=== PATIENT | female | born 1955 | race Caucasian/White ===

== ENCOUNTER 2020-06-26 20:22 | Emergency (ER) | payer MEDICARE, OTHER, SELFPAY ==
[2020-06-26 20:39] VITALS: BP 176/83; PULSE 92; RESP 18; TEMP 36.5; O2SAT 98; BMI 25.1
--- NOTE | 2020-06-26 21:10 | XRR_ITS ---
PROCEDURE INFORMATION: Exam: XR Left Knee Exam date and time: 06/26/2020 9:14 PM Age: 65 years old Clinical indication: Pain; Knee; Left; Additional info: Fall TECHNIQUE: Imaging protocol: XR Left knee. Views: 3 views. Total images: 3 COMPARISON: No relevant prior studies available. FINDINGS: Bones/joints: No visible acute osseous abnormality, fracture, subluxation, or dislocation. No radiographically visible joint effusion. Osteopenia. Soft tissues: Soft tissues without evidence of edema, swelling, contusion, emphysema, or radiopaque foreign body. XR/XR knee LT 3V* [id number] IMPRESSION: Nonacute.
--- NOTE | 2020-06-26 21:10 | XRR_ITS ---
PROCEDURE INFORMATION: Exam: XR Left Hip Exam date and time: 06/26/2020 9:14 PM Age: 65 years old Clinical indication: Hip pain; Left hip; Additional info: Fall TECHNIQUE: Imaging protocol: XR Left hip. Views: 2 or 3 views hip with pelvis when performed. Total images: 2 COMPARISON: No relevant prior studies available. FINDINGS: Bones/joints: Osteopenia. No acute fracture. Soft tissues: Unremarkable. XR/XR hip LT 2-3V wo/w pel* [id number] IMPRESSION: No acute findings.
--- NOTE | 2020-06-26 21:49 | W.ED.FALL ---
HPI - Fall General: Chief Complaint: Fall Stated Complaint: Fall Time Seen by Provider: 06/26/20 21:07 Source: patient and family (daughter) Mode of arrival: ambulatory Limitations: no limitations History of Present Illness: HPI Narrative: 65-year-old female who tripped over a piece of wood and fell on a concrete floor 2 days ago. She had pain in her left knee and left hip. She has been able to ambulate but with pain since then. Her family wanted her checked out so they brought her into the emergency department for evaluation. She complains of left hip and left knee pain. She did not hit her head and did not have any loss of consciousness. MD complaint: fall Onset (ago): day(s) (2) Fall from: standing Fall witnessed: yes, by family Place fall occurred: home Loss of consciousness: None Prolonged down time: no Symptoms prior to fall: none Context: tripped/slipped Location of injury - extremities: Left: knee Severity: moderate Quality: sharp Associated symptoms-after fall: Denies abdominal pain, chest pain, confusion, difficulty walking, headache(s), hematuria, lightheadedness, neck pain, numbness, short of breath, vertigo or weakness Review of Systems General: Reports: 10 or more systems reviewed and unremarkable except in HPI and below Const: Denies: fever(s), chills or body aches Eyes: Denies: change in vision or blurry vision ENMT: Denies: throat pain, enlarged tonsils, odynophagia, hoarseness, mouth pain or swelling of lips/tongue Card: Denies: chest pain or lightheadedness Resp: Denies: dyspnea, productive cough or non-productive cough GI: Denies: abdominal pain : Denies: hematuria Musc: Denies: neck pain Skin/Breast: Denies: rash, pruritus or erythema Neuro: Denies: headache(s), difficulty walking, vertigo or confusion Endo: Denies: polyuria, polydipsia or tired all the time Physical Exam Const: COMMON NORMALS: no acute distress, average body habitus, patient oriented x3, no limitations, healthy appearing, alert and well nourished HENMT: COMMON NORMALS: normocephalic, atraumatic and moist oral mucous membranes HEAD & SCALP: normocephalic and atraumatic Neck/C-Spine: COMMON NORMALS: full ROM, supple, no meningeal signs, no JVD and No carotid bruits Resp: COMMON NORMALS: normal respiratory effort, No retractions, No use of accessory muscles, clear to auscultation bilaterally and percussion normal AUSCULTATION: clear to auscultation bilaterally PERCUSSION: percussion normal Cardio: COMMON NORMALS: no JVD, regular rate, regular rhythm, S1 normal heart sound present, S2 normal heart sound present, No gallops present (Cardio), No clicks present (Cardio), No murmurs present (Cardio), No rub (Cardio) and Peripheral pulses 2+ throughout RATE: regular rate RHYTHM: regular rhythm HEART SOUNDS: S1 normal heart sound present and S2 normal heart sound present PERIPHERAL PULSES: Peripheral pulses 2+ throughout GI: COMMON NORMALS: Normal to inspection, nondistended, normoactive bowel sounds present, Soft to palpation, non-tender, No hepatosplenomegaly present, no masses and no bruits PALPATION: Yes Soft to palpation and Yes No hepatosplenomegaly present Extremity: COMMON NORMALS: normal to inspection, full ROM, capillary refill normal, no calf tenderness and no pedal edema LEFT LOWER EXTREMITY: Yes hip joint Left hip: Yes inspection (normal), Yes palpation (mild tender to palpation), Yes ROM (full ROM) and Yes neurovascular exam (intact) and Yes knee joint Left knee: Yes inspection (no obvious deformity), Yes palpation (tender to palpation on the medial side, along the joint line.), Yes ROM (full ROM) and Yes neurovascular exam (intact) Neuro: COMMON NORMALS: patient oriented x3 SENSORIUM/ORIENTATION: Yes alert MENINGEAL SIGNS: Yes no meningeal signs Skin: COMMON NORMALS: no rashes or lesions noted, no wounds, turgor normal, no jaundice, no petechiae and no mottling GENERAL SKIN EXAM: no rashes or lesions noted and turgor normal Course Reevaluation(s): Reevaluation #1: Discussed her imaging findings with her. Negative for acute fracture or dislocation. We will discharge her home on conservative measures-acetaminophen or ibuprofen as needed. She voiced understanding and is in agreement with the plan. Time: 21:49 Vital Signs: Vital signs: Vital Signs Temperature 97.7 F 06/26/20 20:39 Pulse Rate 85 06/26/20 21:57 Respiratory Rate 18 06/26/20 21:57 Blood Pressure 134/86 06/26/20 21:57 Pulse Oximetry 97 06/26/20 21:57 MDM - Fall MDM Narrative: Medical decision making narrative: 65-year-old female patient who had a fall 2 days ago and had knee and hip pain. X-rays done today were negative for acute findings and she is discharged home on conservative measures. Medical Records: Attestation: I reviewed the patient's medical records. Imaging Data^: Xray Ortho: Attestation: I personally reviewed and interpreted this imaging study as follows: Radiologist's impression: XRay Report Signed Patient: Jose J Meier #: [id number] : 1955cct#:[id number] Age/Sex: 65 / FADM Date: 06/26/20 Loc: ERRoom/Bed: Attending Dr: Ordering Provider/Ordering MD: Nayely Nicole MD, [facility] Date of Service: 06/26/20 Procedure(s): XR hip LT 2-3V wo/w pel* [id number] Accession Number(s): [id number] Report Number: [id number] PROCEDURE INFORMATION: Exam: XR Left Hip Exam date and time: 06/26/2020 9:14 PM Age: 65 years old Clinical indication: Hip pain; Left hip; Additional info: Fall TECHNIQUE: Imaging protocol: XR Left hip. Views: 2 or 3 views hip with pelvis when performed. Total images: 2 COMPARISON: No relevant prior studies available. FINDINGS: Bones/joints: Osteopenia. No acute fracture. Soft tissues: Unremarkable. XR/XR hip LT 2-3V wo/w pel* [id number] IMPRESSION: No acute findings. Dictated By:Bhavin Ellsworth Signed By:Ana Luisa Ellsworth Date/Time:06/26/202141 DD/ [address] [address] XRay Report Signed Patient: Jose J Meier #: [id number] : 1955cct#:[id number] Age/Sex: 65 / FADM Date: 06/26/20 Loc: ERRoom/Bed: Attending Dr: Ordering Provider/Ordering MD: Nayely Nicole MD, [facility] Date of Service: 06/26/20 Procedure(s): XR knee LT 3V* [id number] Accession Number(s): [id number] Report Number: [id number] PROCEDURE INFORMATION: Exam: XR Left Knee Exam date and time: 06/26/2020 9:14 PM Age: 65 years old Clinical indication: Pain; Knee; Left; Additional info: Fall TECHNIQUE: Imaging protocol: XR Left knee. Views: 3 views. Total images: 3 COMPARISON: No relevant prior studies available. FINDINGS: Bones/joints: No visible acute osseous abnormality, fracture, subluxation, or dislocation. No radiographically visible joint effusion. Osteopenia. Soft tissues: Soft tissues without evidence of edema, swelling, contusion, emphysema, or radiopaque foreign body. XR/XR knee LT 3V* [id number] IMPRESSION: Nonacute. Dictated By:Bhavin Ellsworth Signed By:Bhavin EllsworthSiyogesh Date/Time:06/26/202141 DD/ 39 Discharge Plan Discharge Patient Disposition: Home Clinical Impression: Acute pain of left hip Fall Qualifiers: Encounter type: initial encounter Qualified Code(s): W19.XXXA - Unspecified fall, initial encounter Left knee pain Qualifiers: Chronicity: acute Qualified Code(s): M25.562 - Pain in left knee Condition: Stable Discharge Orders: Discharge ED (Routine); Ordered 06/26/20 Ordered By: Nayely Nicole Discharge Diet: Usual diet Discharge Activity: Increase activity as tolerated Patient Instructions: Knee Pain (ED), Arthralgia (ED), Fall Prevention (ED) Activity Restrictions/Additional Instructions: Return for any new or worsening symptoms. Follow-up with your primary care provider within 3 days. Take Tylenol or ibuprofen as needed for pain. If your knee pain continues for about 2 weeks and does not get significantly better you need to follow-up with your primary care provider as you may need an MRI of the knee to look for ligament damage. Coding Level of Care Code ED Railroad Construction Director for [place] [facility]
[2020-06-26 21:57] VITALS: BP 134/86; PULSE 85; RESP 18; O2SAT 97
== END 2020-06-26 21:58 | disposition home or self-care (01) ==
PROVIDERS: Emergency Provider Family Medicine
DX: M25.562 Pain in left knee (principal); M25.552 Pain in left hip; W18.09XA Striking against other object with subsequent fall, initial encounter
CPT/HCPCS: 73502; 73562; 99282

== ENCOUNTER 2021-11-10 17:59 | Emergency (ER) | payer MEDICARE, OTHER, SELFPAY ==
[2021-11-10 18:04] VITALS: PULSE 87; RESP 18; TEMP 36.6; O2SAT 98; BMI 29.5
--- NOTE | 2021-11-10 18:39 | ECG_ITS ---
[facility] Test Date: 2021-11-10 Pat Name: Areli Meier Department: Room: Gender: Female Sheriff Officer: : 1955 Requested By: Tierney Jones Order Number: [id number] Gilberto MD: Ilya Bob M.D. Measurements Intervals [place] Rate: 75 P: 87 [place]: 178 QRS: 16 QRSD: 93 T: 61 QT: 397 QTc: 445 Interpretive Statements SINUS RHYTHM WITH OCCASIONAL VENTRICULAR PREMATURE COMPLEXES LOW QRS VOLTAGE IN PRECORDIAL LEADS [QRS DEFLECTION < 1.0 mV IN CHEST LEADS] No previous ECG available for comparison Electronically Signed On 11-11-2021 14:22:11 CDT by Ilya Bob M.D. [email or web address]
--- NOTE | 2021-11-10 18:39 | CTR_ITS ---
PROCEDURE INFORMATION: Exam: CT Head Without Contrast Exam date and time: 11/10/2021 7:14 PM Age: 66 years old Clinical indication: Weakness, extremity; Bilateral; Additional info: Symptoms of acute stroke TECHNIQUE: Imaging protocol: Computed tomography of the head without contrast. Radiation optimization: All CT scans at this facility use at least one of these dose optimization techniques: automated exposure control; mA and/or kV adjustment per patient size (includes targeted exams where dose is matched to clinical indication); or iterative reconstruction. COMPARISON: No relevant prior studies available. RADIATION DOSE METRICS: Total DLP (mGy-cm): 1100.18 FINDINGS: Brain: Mild diffuse white matter disease likely reflecting chronic microvascular ischemic changes. Cerebral ventricles: No ventriculomegaly. Paranasal sinuses: Visualized sinuses are unremarkable. No fluid levels. Mastoid air cells: Visualized mastoid air cells are well aerated. Bones/joints: Unremarkable. No acute fracture. Soft tissues: Unremarkable. CT/CT head wo con* [id number] IMPRESSION: Negative for intracranial hemorrhage or mass effect
--- NOTE | 2021-11-10 19:45 | CTR_ITS ---
PROCEDURE INFORMATION: Exam: CTA Head With Contrast, Venography Exam date and time: 11/10/2021 8:20 PM Age: 66 years old Clinical indication: Speech disturbance and weakness; Additional info: ELLIS TECHNIQUE: Imaging protocol: Computed tomography angiography of the head with contrast. Exam focused on the veins. 3D rendering (Not supervised by radiologist): MIP and/or 3D reconstructed images were created by the technologist. Radiation optimization: All CT scans at this facility use at least one of these dose optimization techniques: automated exposure control; mA and/or kV adjustment per patient size (includes targeted exams where dose is matched to clinical indication); or iterative reconstruction. Contrast material: OMNIPAQUE 350; Contrast volume: 95 ml; Contrast route: INTRAVENOUS (IV); COMPARISON: CT head wo con* [id number] 11/10/2021 7:14 PM RADIATION DOSE METRICS: Total DLP (mGy-cm): 478.02 FINDINGS: Superior sagittal sinus: Patent. Straight sinus: Patent. Transverse sinuses: Patent. Sigmoid sinuses: Patent. Internal jugular veins: Limited visualized internal jugular veins are patent. ANTERIOR CIRCULATION: Right internal carotid artery: Moderate stenosis of the right internal carotid artery with calcified plaque. Left internal carotid artery: Moderate stenosis of the left internal carotid artery with calcified plaque. Brain: No definite mass, mass effect, or midline shift. Cerebral ventricles: No ventriculomegaly. Soft tissues: Unremarkable. PROCEDURE INFORMATION: Exam: CTA Neck With Contrast Exam date and time: 11/10/2021 8:20 PM Age: 66 years old Clinical indication: Speech disturbance and weakness; Additional info: ELLIS TECHNIQUE: Imaging protocol: Computed tomographic angiography of the neck with contrast. 3D rendering (Not supervised by radiologist): MIP and/or 3D reconstructed images were created by the technologist. Radiation optimization: All CT scans at this facility use at least one of these dose optimization techniques: automated exposure control; mA and/or kV adjustment per patient size (includes targeted exams where dose is matched to clinical indication); or iterative reconstruction. Contrast material: OMNIPAQUE 350; Contrast volume: 95 ml; Contrast route: INTRAVENOUS (IV); COMPARISON: CT head wo con* [id number] 11/10/2021 7:14 PM RADIATION DOSE METRICS: Total DLP (mGy-cm): 478.02 FINDINGS: Right common carotid artery: No stenosis. No dissection or occlusion. Right internal carotid artery: There is approximately 60% stenosis of the right internal carotid artery by calcified plaque. Right external carotid artery: No occlusion or stenosis of the origin. Left common carotid artery: No stenosis. No dissection or occlusion. Left internal carotid artery: There is approximately 71% stenosis of the left internal carotid artery with calcified/noncalcified plaque. Left external carotid artery: No occlusion or stenosis of the origin. Right vertebral artery: No stenosis. No dissection or occlusion. Left vertebral artery: No stenosis. No dissection or occlusion. Soft tissues: Normal. No significant soft tissue swelling. Bones/joints: No acute fracture. Lungs: Emphysematous changes in the visualized lung bases. CT/CT angio headneck* [id number] IMPRESSION: No significant stenosis or occlusion of the intracranial arteries. IMPRESSION: 1. Right: Approximately 60% stenosis of the right internal carotid artery by calcified plaque. Vertebral artery is patent. 2. Left: Approximately 71% stenosis of the left internal carotid artery with calcified/noncalcified plaque. Vertebral artery is patent. REFERENCES: NASCET CRITERIA. The degree of internal carotid artery stenosis is based on NASCET criteria. Normal is no stenosis. Mild is less than 50% stenosis. Moderate is 50-69% stenosis. Severe is 70% to 99% stenosis. Total occlusion is no detectable patent lumen.
--- NOTE | 2021-11-10 19:47 | ED_ITS ---
HPI - Neuro Symptoms/Deficit General: Chief Complaint: Neuro Symptoms/Deficit Stated Complaint: Slurring words/wobbly Time Seen by Provider: 11/10/21 19:42 Source: patient Mode of arrival: ambulatory Limitations: no limitations History of Present Illness: 66-year-old female states that over the last 2 d ays she has been having a migraine headache she rates a 6 out of 10. States been having some intermittent episodes of some dizziness with difficulty walking with bilateral hand weakness and some slurred speech. She states she does have a history of anxiety attacks well and she had a traumatic experience on Monday she states she had found to 25-year-old at home himself she is been having some anxiety since then. States her symptoms currently are completely resolved except for a headache she rates a 5 out of 10 denies any chest pain denies any fever. Associated symptoms: Reports headache(s); Deny chest pain, nausea or vomiting Review of Systems Const: Denies: fever(s), chills, body aches or change in appetite Eyes: Denies: blurry vision or eye discomfort ENMT: Denies: throat pain or dental pain Card: Denies: chest pain Resp: Denies: dyspnea GI: Denies: abdominal pain, nausea, vomiting or diarrhea : Denies: dysuria Musc: Denies: neck pain or back pain Skin/Breast: Denies: rash Neuro: Reports: headache(s), numbness in extremities and weakness in extremities Psych: Denies: depression [place]/Lymph: Denies: easy bruising All/Imm: Denies: urticaria PFSH ED PFSH: Medical History (Updated 11/10/21 @ 21:28 by Tierney Jones MD) Migraine Social History (Updated 11/10/21 @ 19:48 by Tierney Jones MD) Substance/Drug Use: never NIH stroke score NIHSS: Level Of Consciousness - 1a: 0 Level Of Consciousness Questions - 1b: Both Correct Level Of Consciousness Commands - 1c: Both Correct Best Gaze - 2: Normal Visual [place] - 3: No Visual Loss Facial Palsy - 4: Normal Motor Arm Right - 5: No Drift Motor Arm Left - 5: No Drift Motor Leg Right - 6: No Drift Motor Leg Left - 6: No Drift Limb Ataxia - 7: Absent Sensory - 8: Normal Best Language - 9: No Aphasia Dysarthia - 10: Normal Extinction And Inattention - 11: 0 Score: Total Score: 0 Physical Exam Const: COMMON NORMALS: no acute distress, patient oriented x3 and healthy appearing HENMT: COMMON NORMALS: normocephalic and atraumatic HEAD & SCALP: normocephalic and atraumatic Eye: COMMON NORMALS: Equal, round and reactive pupils present and EOMs intact bilaterally PUPIL: Yes Equal, round and reactive pupils present Neck/C-Spine: COMMON NORMALS: full ROM and supple Chest: COMMONS NORMALS: normal inspection of the chest and normal palpation of entire chest wall Resp: COMMON NORMALS: normal respiratory effort, No retractions, No use of accessory muscles and clear to auscultation bilaterally AUSCULTATION: clear to auscultation bilaterally Cardio: COMMON NORMALS: regular rate, regular rhythm and No murmurs present (Cardio) RATE: regular rate RHYTHM: regular rhythm GI: COMMON NORMALS: Normal to inspection, nondistended, normoactive bowel sounds present, Soft to palpation, non-tender and no masses PALPATION: Yes Soft to palpation Extremity: COMMON NORMALS: normal to inspection and full ROM Neuro: COMMON NORMALS: patient oriented x3, moves all extremities and no focal motor deficits Psych: COMMON NORMALS: mental status grossly normal, Normal thought process present and cooperative THOUGHT PROCESS: Normal thought process present Skin: COMMON NORMALS: no rashes or lesions noted and no wounds GENERAL SKIN EXAM: no rashes or lesions noted Course Vital Signs: Vital signs: Vital Signs Temperature 97.9 F 11/10/21 18:04 Pulse Rate 101 H 11/10/21 20:00 Respiratory Rate 19 H 11/10/21 20:00 Blood Pressure 137/71 11/10/21 20:00 Pulse Oximetry 95 11/10/21 20:00 Oxygen Delivery Me thod 11/10/21 20:00 MDM - Neuro Symptoms/Deficit Medical Decision Making Patient presents here with headaches along with TIAs. Patient's symptom-free here feels much improved after Reglan and Benadryl did overview her CT angio with her she does have some stenosis no signs of acute stroke we will start her on a statin normal aspirin did give her smoking cessation counseling we will get her follow-up with neurology and she is to return if worsening. Lab Data : 11/10/21 19:58 11/10/21 19:[address] 11/10/21 18:39 IMPRESSION: Negative for intracranial hemorrhage or mass effect Head/Neck CTA 11/10/21 19:45 IMPRESSION: No significant stenosis or occlusion of the intracranial arteries. IMPRESSION: 1. Right: Approximately 60% stenosis of the right internal carotid artery by calcified plaque. Vertebral artery is patent. 2. Left: Approximately 71% stenosis of the left internal carotid artery with calcified/noncalcified plaque. Vertebral artery is patent. REFERENCES: NASCET CRITERIA. The degree of internal carotid artery stenosis is based on NASCET criteria. Normal is no stenosis. Mild is less than 50% stenosis. Moderate is 50-69% stenosis. Severe is 70% to 99% stenosis. Total occlusion is no detectable patent lumen. Laboratory Results WBC 10.9 10^3/uL (4.0-10.0) H 11/10/21 19:58 RBC 5.76 10^6/uL (4.1-5.3) H 11/10/21 19:58 Hgb 16.7 g/dL (11.5-15.3) H 11/10/21 19:58 Hct 51.4 % (37.0-47.0) H 11/10/21 19:58 MCV 89.2 fl (81-99) 11/10/21 19:58 MCH 29.0 pg (28.0-34.0) 11/10/21 19:58 MCHC 32.5 g/dL (30.0-36.0) 11/10/21 19:58 RDW 13.9 % (12.1-15.1) 11/10/21 19:58 Plt Count 245 10^3/cmm (130-400) 11/10/21 19:58 MPV 11.1 fL (7.4-10.4) H 11/10/21 19:58 Neut % (Auto) 60.3 % 11/10/21 19:58 Lymph % (Auto) 26.3 % 11/10/21 19:58 [place] % (Auto) 9.6 % 11/10/21 19:58 Eos % (Auto) 2.8 % 11/10/21 19:58 Baso % (Auto) 0.5 % 11/10/21 19:58 Neut # (Auto) 6.56 10^3/uL (1.8-7.7) 11/10/21 19:58 Lymph # (Auto) 2.9 10^3/uL (0.8-4.8) 11/10/21 19:58 [place] # (Auto) 1.0 10^3/uL (0.2-0.9) H 11/10/21 19:58 Eos # (Auto) 0.3 10^3/uL (0.0-0.8) 11/10/21 19:58 Baso # (Auto) 0.1 10^3/uL (0.0-0.1) 11/10/21 19:58 Nucleated RBC % (auto) 0 % 11/10/21 19:58 Nucleated RBCs # 0.0 /100WBC 11/10/21 19:58 PT 13.00 SECONDS (12.1-14.9) 11/10/21 19:58 INR 0.95 (0.8-1.2) 11/10/21 19:58 APTT 27.2 SECONDS (23.9-36.7) 11/10/21 19:58 Sodium 139 mmol/L (136-145) 11/10/21 19:58 Potassium 4.1 mmol/L (3.5-5.1) 11/10/21 19:58 Chloride 101 mmol/L (98-107) 11/10/21 19:58 Carbon Dioxide 28 mmol/L (22-29) 11/10/21 19:58 Anion Gap 14.1 (5-19) 11/10/21 19:58 BUN 17 mg/dL (8-23) 11/10/21 19:58 Creatinine 1.0 mg/dL (0.5-0.9) H 11/10/21 19:58 GFR Calculation 55.8 mL/min (90-130) L 11/10/21 19:58 Glucose 95 mg/dL (65-115) 11/10/21 19:58 Calculated Osmolality 289 mOsm/kg (285-295) 11/10/21 19:58 Calcium 9.5 mg/dL (8.5-10.5) 11/10/21 19:58 Total Bilirubin 0.2 mg/dL (0.15-1.2) 11/10/21 19:58 AST 16 U/L (0-32) 11/10/21 19:58 ALT 13 U/L (0-33) 11/10/21 19:58 Alkaline Phosphatase 125 IU/L (35-105) H 11/10/21 19:58 Total Protein 7.4 g/dL (6.6-8.7) 11/10/21 19:58 Albumin 4.3 g/dL (3.5-5.2) 11/10/21 19:58 Globulin 3.1 g/dL (1.3-4.6) 11/10/21 19:58 EKG Data EKG 1: I personally reviewed and interpreted this EKG as follows: EKG interpretation date: 11/10/21 EKG interpretation time: 20:52 Interpretation: nsr hr [address] or t wave abnormalities qrs 93 qtc 426 Discharge Plan Discharge Patient Disposition: Home Clinical Impression: Transient cerebral ischemia, Headache Prescriptions: New aspirin 81 mg capsule 81 mg PO DAILY Qty: 30 0RF atorvastatin 80 mg tablet 80 mg PO DAILY Qty: 60 0RF Discharge Orders: Discharge ED (Routine); Ordered 11/10/21 Ordered By: Tierney Jones Discharge Diet: Advance as tolerated Discharge Activity: Resume usual activity Patient Instructions: Transient Ischemic Attack (ED) Coding Level of Care Code ED Electrostatic Powder Coating Technician for [facility] [facility] Exam Comprehensive
[2021-11-10 19:50] VITALS: BP 186/94; PULSE 84; RESP 20; O2SAT 96
--- NOTE | 2021-11-10 19:50 | PC.NURSE ---
pt to ed from home with for eval of mild confusion, altered gait, slurred speech since yesterday associated with migraine and extreme stress. states that yesterday she found her family friend had [place] no hx of similar events. no hx of traumas. denies s/s occurring at this time. nad.
[2021-11-10 20:00] VITALS: BP 137/71; PULSE 101; RESP 19; O2SAT 95
[2021-11-10 20:06] LABS: Basophils # 0.1 10^3/uL (0.0-0.1); Basophils % 0.5 %; Eosinophils # 0.3 10^3/uL (0.0-0.8); Eosinophils % 2.8 %; Hematocrit 51.4 % (37.0-47.0); Hemoglobin 16.7 g/dL (11.5-15.3); Lymphocytes # 2.9 10^3/uL (0.8-4.8); Lymphocytes % 26.3 %; Mean Corpuscular HGB Conc 32.5 g/dL (30.0-36.0); Mean Corpuscular Volume 89.2 fl (81-99); Mean Platelet Volume 11.1 fL (7.4-10.4); Monocytes % 9.6 %; Neutrophils # 6.56 10^3/uL (1.8-7.7); Neutrophils % 60.3 %; Nucleated Red Blood Cells % 0 %; Platelet Count 245 10^3/cmm (130-400); Red Blood Count 5.76 10^6/uL (4.1-5.3); Red Cell Distribution Width 13.9 % (12.1-15.1); White Blood Count 10.9 10^3/uL (4.0-10.0)
[2021-11-10 20:13] LABS: INR 0.95 (0.8-1.2)
[2021-11-10 20:14] LABS: Partial Thromboplastin Time 27.2 SECONDS (23.9-36.7)
[2021-11-10] MEDS: metoclopramide 5 mg/mL SDV 2 mL IVP (20:15)
[2021-11-10] MEDS: diphenhydrAMINE 50 mg/mL SDV 1mL 25 MG IVP (20:15)
--- NOTE | 2021-11-10 20:20 | PC.NURSE ---
PT TO CT AT THIS TIME WITH RADIATOR MECHANIC
[2021-11-10 20:25] LABS: Alanine Aminotransferase 13 U/L (0-33); Albumin Level 4.3 g/dL (3.5-5.2); Alkaline Phosphatase 125 IU/L (35-105); Anion Gap 14.1 (5-19); Aspartate Amino Transferase 16 U/L (0-32); Blood Urea Nitrogen 17 mg/dL (8-23); Calcium 9.5 mg/dL (8.5-10.5); Carbon Dioxide 28 mmol/L (22-29); Chloride 101 mmol/L (98-107); Globulin 3.1 g/dL (1.3-4.6); Glomerular Filtration Rate 55.8 mL/min (90-130); Glucose 95 mg/dL (65-115); Osmolality Calculated 289 mOsm/kg (285-295); Potassium 4.1 mmol/L (3.5-5.1); Sodium 139 mmol/L (136-145); Total Bilirubin 0.2 mg/dL (0.15-1.2); Total Protein 7.4 g/dL (6.6-8.7)
[2021-11-10] MEDS: iohexol 350 mg/mL 100 mL Btl IV (20:25)
[2021-11-10 21:57] VITALS: BP 121/68; PULSE 72; RESP 16; O2SAT 92
--- NOTE | 2021-11-12 11:36 | DCPLANNER ---
Addendum entered by Shannan Dawson 12/22/21 09:01: law office manager received the following message from the neurology clinic regarding follow up appointment: Patient cancelled appt. Per Patient, She does not think she needs to see Dr Haque. Addendum entered by Shannan Dawson 11/19/21 14:38: Patient has a follow up appointment scheduled for Monday, December 08, [address] at 10:[address] Haque. Clinic will call patient with appointment information. Original Note: law office manager had message to schedule a follow up appointment for patient with neurology. law office manager sent patients information to the front office staff at neurology. Patients information will be printed and reviewed. Clinic will call patient with appointment information.
== END 2021-11-10 21:55 | disposition home or self-care (01) ==
PROVIDERS: Emergency Provider Emergency Medicine
DX: R51.9 Headache, unspecified (principal); G45.9 Transient cerebral ischemic attack, unspecified
CPT/HCPCS: 70450; 70496; 70498; 80053; 85025; 85610; 85730; 93005; 96374; 96375; 99285; J1200; J2765; Q9967

== ENCOUNTER → 2021-11-30 14:23 | Outpatient (BNVA) | payer MEDICARE, OTHER, SELFPAY | PROVIDERS: Visit Provider Family Medicine | DX: I10 Essential (primary) hypertension (principal); I65.22 Occlusion and stenosis of left carotid artery | CPT/HCPCS: 80061 ==

== ENCOUNTER → 2022-01-20 13:03 | Outpatient (BNVA) | payer MEDICARE, OTHER, SELFPAY | PROVIDERS: PCP Family Medicine; Visit Provider Thoracic Surgery (Cardiothoracic Vascular Surgery) | DX: I65.22 Occlusion and stenosis of left carotid artery (principal) | CPT/HCPCS: 99203; 99204 ==

== ENCOUNTER 2022-01-21 13:00 | Outpatient (CLI) | payer MEDICARE, OTHER, SELFPAY ==
--- NOTE | 2022-01-21 | USCV_ITS ---
Areli Meier Age: 66 Gender: F : 1955 Exam Date: 01/21/2022 13:15 Ordering Phys: Markos Marie MD (Andy[email or web address] [place] Technologist: MARY Exam Location: [facility] [place] Indication: CAROTID US OF LEFT SIDE ONLY TO EVAL FOR FLOW IN ICA PER SX Risk Factors: Previous Vascular Surgery: Right Brachial BP: / Left Brachial BP: / Right Left Velocity (cm/s) Spectral Plaque Velocity (cm/s) Spectral Plaque Syst/Diast Broadening Syst/Diast Broadening / Mid CCA 47.30 / 7.90 / Prox ICA 580.70/ 278.90 / Mid ICA 303.30/ 72.90 / Distal ICA 61.50 / 17.90 ECA 114.10 ICA/CCA 12.27 Vertebral Antegrade / cm/s 68.40/ 23.10 cm/s Subclavian Tri 172.2 0 FINDINGS Limited exam to Left ICA. High grade stenosis Left ICA with diffuse, circumfrential wall thickening. Small caliber artery. Marked systolic and diastolic stenosis. CONCLUSIONS Near complete occlusion left ICA. Severe stenosis. Dr. Marie is notified. Dr. Monica Campos DO (Electronically Signed) Final Date: 21 January 2022 15:57 S
== END 2022-01-21 13:01 | disposition home or self-care (01) ==
PROVIDERS: Visit Provider Thoracic Surgery (Cardiothoracic Vascular Surgery)
DX: I65.22 Occlusion and stenosis of left carotid artery (principal)
CPT/HCPCS: 93880

== ENCOUNTER 2022-01-24 05:42 | Inpatient (IN) | payer MEDICARE, OTHER, SELFPAY ==
[2022-01-21 13:15] LABS: Basophils # 0.1 10^3/uL (0.0-0.1); Eosinophils # 0.3 10^3/uL (0.0-0.8); Eosinophils % 2.8 %; Hematocrit 53.2 % (37.0-47.0); Hemoglobin 17.2 g/dL (11.5-15.3); Lymphocytes % 21.4 %; Mean Corpuscular HGB Conc 32.3 g/dL (30.0-36.0); Mean Corpuscular Hemoglobin 28.7 pg (28.0-34.0); Mean Corpuscular Volume 88.8 fl (81-99); Mean Platelet Volume 11.4 fL (7.4-10.4); Monocytes # 0.7 10^3/uL (0.2-0.9); Neutrophils # 6.29 10^3/uL (1.8-7.7); Neutrophils % 67.5 %; Nucleated Red Blood Cells % 0 %; Platelet Count 265 10^3/cmm (130-400); Red Blood Count 5.99 10^6/uL (4.1-5.3); Red Cell Distribution Width 14.4 % (12.1-15.1); White Blood Count 9.3 10^3/uL (4.0-10.0)
--- NOTE | 2022-01-21 13:22 | ANES.PREANE2 ---
Pre-Anesthetic Assessment Height/Weight: Height 1.75 m Weight 79.379 kg Operation Date: 01/24/22 07:00 Proposed Procedures p Carotid Endarterectomy(Not Applicable) - Markos Marie MD Familial anesthetic complications: None Social No alcohol and No tobacco Exam alert, oriented x 3, clear to auscultation bilaterally and regular rate & rhythm Airway Mallampati: Class II Dentition: chipped and loose Pulmonary None reported CV/HEM Hypertension None reported Hepatic None reported GI Gastroesophageal Reflux Disease Musc/skel Lower Back Pain Neuropsych Transient Ischemic Attack Anesthetic Plan ASA status: 3 Anesthesia: General Risk of > 500 ml blood loss (7ml/kg in children): Yes, adequate IV access and fluids planned Medications/Allergies Home Medications Medication Instructions Recorded Confirmed Last Taken Type aspirin 81 mg capsule 81 mg PO DAILY #30 caps 11/10/21 01/21/22 01/21/22 Rx amlodipine 5 mg tablet 5 mg PO DAILY #30 tabs 12/21/21 01/21/22 Unknown Rx atorvastatin 80 mg tablet 80 mg PO DAILY #30 tabs 12/21/21 01/21/22 Unknown Rx lisinopril 20 mg tablet 20 mg PO DAILY #30 tabs 12/21/21 01/21/22 Unknown Rx pantoprazole 40 mg tablet,delayed 40 mg PO DAILY #30 tabs 12/21/21 01/21/22 Unknown Rx release Allergies Allergy/AdvReac Type Severity Reaction Status Date / Time NSAIDS (Non-Steroidal Allergy Mild ADR-Chest Verified 01/20/22 13:43 Anti-Inflamma Pain Penicillins Allergy Mild rash Verified 01/20/22 13:43 tetracycline Allergy ALGY-Bliste Verified 01/21/22 12:41 r [facility] Anesthesia Medical History Migraine Family History Mother CAD (coronary artery disease) Diabetes Hypertension Father CAD (coronary artery disease) Hypertension Sister Cancer Breast Cancer Denies family history of Clotting disorder Dementia Hyperlipidemia Psychiatric illness Chronic kidney disease (CKD) Suicide Anesthesia complication Bleeding disorder Family history of premature coronary artery disease Lung disease Stroke Social History Smoking and tobacco status: smoker, details unknown cigarettes Packs smoked per day: 0.5 Years cigarettes smoked: 50 [ Other cigarette details: quit 1 month ago] Alcohol intake: never Lives independently: Yes Household members: none Marital status: / Number of children: 4 Pets and animals: Yes Pets & animals: cat(s) and dog(s) Female Reproductive History Spontaneous abortions: No Data Anesthesia : 01/21/22 12:54 01/21/22 12:54 Short CBC 01/21/22 Range/Units 12:54 WBC 9.3 (4.0-10.0) 10^3/uL Hgb 17.2 H (11.5-15.3) g/dL Hct 53.2 H (37.0-47.0) % MCV 88.8 (81-99) fl Plt Count 265 (130-400) 10^3/cmm Neut % (Auto) 67.5 % Neut # (Auto) 6.29 (1.8-7.7) 10^3/uL Cardiac Studies: No Data to Display
[2022-01-21 13:37] LABS: Add Urine Microscopic? YES; Bilirubin Urine Neg (Negative); Blood Urine 3+ (Negative); Glucose Urine UA Norm (Normal); Ketones Urine Negative (Negative); Leukocyte Esterase Urine Negative (Negative); Nitrate Urine Negative (Negative); Protein Urine Neg (Negative); Specific Gravity, Urine 1.015 (1.005-1.030); Sulfosalicylic Acid Urine Negative (Negative); Urine Appearance Clear (CLEAR); Urine Color Yellow (Yellow); Urobilinogen Urine Norm (Negative); pH Urine 6 (5-7)
[2022-01-21 13:42] LABS: Add Urine Culture? No; Bacteria Urine TRACE /hpf; RBC Urine 0-4 /hpf (0-2); Squamous Epithelial Cell Urine 0-4 /hpf (0-5)
[2022-01-21 13:44] LABS: Anion Gap 19.3 (5-19); Blood Urea Nitrogen 13 mg/dL (8-23); Calcium 10.4 mg/dL (8.5-10.5); Carbon Dioxide 28 mmol/L (22-29); Chloride 97 mmol/L (98-107); Glomerular Filtration Rate 72.2 mL/min (90-130); Glucose 176 mg/dL (65-115); Osmolality Calculated 294 mOsm/kg (285-295); Potassium 4.3 mmol/L (3.5-5.1); Sodium 140 mmol/L (136-145)
[2022-01-24] VITALS (51 sets, daily range): BP systolic 96–124; BP diastolic 47–62; PULSE 48–102; RESP 12–29; TEMP 36.8; O2SAT 84–96
--- NOTE | 2022-01-24 05:42 | XRR_ITS ---
PROCEDURE INFORMATION: Exam: XR Chest Exam date and time: 01/24/2022 6:21 AM Age: 66 years old Clinical indication: Screening exam; Pre-operative exam; Cardiovascular screening; Additional info: Carotid endarterectomy TECHNIQUE: Imaging protocol: Radiologic exam of the chest. Views: 1 view. COMPARISON: CT angio headneck* [id number] 11/10/2021 8:20 PM FINDINGS: Lungs: There is a background of emphysema and pulmonary fibrosis. Pleural spaces: Unremarkable. No pleural effusion. No pneumothorax. Heart/Mediastinum: Unremarkable. No cardiomegaly. Bones/joints: Unremarkable. XR/XR chest 1V portable [id number] IMPRESSION: 1. There are no acute chest findings. 2. Background of emphysema and pulmonary fibrosis.
[2022-01-24] MEDS: sodium chloride 0.9% 1,000 ML 30 ML IV (06:05)
[2022-01-24] MEDS: vancomycin 1,500 MG/300 ML PIGGYBACK 200 MG IV (07:07)
--- NOTE | 2022-01-24 07:15 | W.PM.OPSUD ---
Surgery/Procedure H&P Update DATE OF PROCEDURE: January 24, 2022 DATE H&P PERFORMED: 01/20/22 H&P UPDATE INFORMATION: I have reviewed H&P completed within last 30 days, I have examined patient prior to procedure and No changes to prior documentation PREOP DIAGNOSIS: left carotid endarterectomy PRIMARY INDICATION FOR PROCEDURE: High grade Right ICA stenosis with TIA's PLANNED PROCEDURE: Operation Date: 01/24/22 07:00 Proposed Procedures p Carotid Endarterectomy 67507,I65.29(Not Applicable) - Markos Marie MD
[2022-01-24] MEDS: vancomycin 1,000 MG SDV 1000 MG IRRIGATION (07:50)
[2022-01-24] MEDS: heparin, porcine 1,000 unit/mL INJ 10 mL 10000 UNIT IRRIGATION (07:50)
--- NOTE | 2022-01-24 10:16 | P.OP_ITS ---
Operative Report Date of procedure: January 24, 2022 Pre-op diagnosis: Preop Diagnosis left carotid endarterectomy Post-op diagnosis: same Procedure done: Left carotid endarterectomy with patch angioplasty Implants: Shalom shield patch Specimens removed/disposition: Left carotid plaque Surgeon: Markos Marie Estimated blood loss (mL): 50 Complications: None: Neurologically intact postop Findings: Friable carotid plaque with thrombus burden Condition: stable Disposition: ICU Brief History: Ms. Meier is a 66-year-old female referred to our service for multiple TIAs over the last month consisting of left amaurosis along with right upper extremity and lower extremity weakness which lasts from a few minutes to several minutes. Prior CTA described a 71% left ICA stenosis at the bifurcation. Upon personal review, I was concerned that this was over greater degree of stenosis and at my request, was reviewed by Dr. Jimenes from our radiology service. He also felt that the lesion was tight. Carotid duplex was performed and revealed velocities over 500 ms in the left ICA. Given her multiple TIAs, I recommended expeditious endarterectomy. Rationale was carefully discussed including details risk of the procedure. Appropriate consents were reviewed and signed. Procedure: Ms. Meier was placed on the OR table and underwent general endotracheal anesthesia with a neurological monitoring endotracheal tube as well as placement of a right radial arterial line. Bihemispheric monitoring pads were placed as well as grounding and sensing pads for nerve conduction evaluation during neck dissection.The entire upper chest and left neck were sterilely prepped and draped. Incision was made along the anterior border of the sternomastoid muscle and carried down to the platysma with cautery. Dissection from this point forward was carried out utilizing Metzenbaum scissors and limited use of bipolar cautery. The internal jugular vein was dissected free and the facial vein was ligated, oversewn, and divided. Dissection was continued down through the ansa cervicalis with preservation of major branches. Minor branches were divided if required to allow for adequate exposure. Nerve conduction evaluation was performed throughout the dissection for protection of the recurrent nerve. We subsequently reached the common carotid artery. Dissection was then continued proximally to distally across the bifurcation. Vessel loops were placed around the common carotid artery, internal carotid artery, and external carotid artery. Distally, the base of the hypoglossal nerve could be identified and was protected. The internal carotid artery disease went fairly high and extended above the level of the mandibular angle. This did require some traction in this region, but great care was taken to minimize pressure to the hypoglossal nerve, which was protected. Care was taken during this disse ction to avoid injury to the vagus nerve. The patient was then heparinized with 10,000 units. The systolic blood pressure was elevated to 160. Following this, in a rapid sequenced fashion, the distal internal carotid artery was clamped followed by clamping of the common carotid artery and external carotid artery. #11 scalpel blade was used to open the common carotid artery proximally. Gee scissors were then utilized to extend this arteriotomy across the distal common carotid artery and ulcerated very stenotic plaque and continue this further at the bifurcation across the calcific plaque in the internal carotid artery until we had reached normal intima. The internal carotid artery clamp was briefly flashed with evidence of brisk back bleeding, therefore we elected not to shunt. It should be noted that bi-hemispheric oximetry was recorded throughout the procedure. Next, a freer elevator was utilized to create a dissection plane the plaque from intima at the proximal portion of the arteriotomy. This was then divided with a #11 scalpel blade. This plaque was then further dissected along the intimal plane proximally to distally across the bifurcation. Utilizing an everting technique, plaque was removed from the external carotid artery with brisk flow. This plaque was then dissected free up the internal carotid artery to a feathered edge. Heparinized saline solution was utilized to remove any loose debris. Next, a Hemashield patch was brought into the field and sewn into position utilizing a running 6-0 Prolene suture, thereby completing our patch angioplasty. At the completion of the patch, the external carotid artery was opened followed by the common carotid artery and finally the internal carotid artery, thereby reestablishing cerebral flow. Areas of extravasation were repaired with 6-0 Prolene suture. After 5 minutes, heparin was reversed with protamine. Hemostasis was confirmed. The wound was irrigated with antibiotic solution. A small, flat, Flakito-Larsen drain was placed in the wound and connected to bulb suction. Sponge and needle count was correct. The wound was then closed in 2 layers of 3-0 Vicryl suture. Skin was reapproximated in a subcuticular manner with 4-0 Monocryl suture. A pressure dressing was then applied. The patient was awakened from anesthesia and spontaneous movement of all extremities as well as movement to command was noted. The patient was then transferred to the ICU in stable condition. I did teacher counselor with the family at completion of the procedure. Ms. Meier will be monitored in the ICU for the next 24 hours.
--- NOTE | 2022-01-24 10:30 | PC.NURSE ---
To unit Pt brought to unit by OR staff via bed. Pt is sleepy yet arousable. Pt has right radial art line that has been zeroed and is reading accurately. Pt has surgical incision to left anterior neck with island dressing that is CDI. NILSA drain to left neck has scant amounts of red drainage. Mckenzie is in place and draining. Pt's family updated and at bedside.
[2022-01-24] MEDS: aspirin 81 mg Chew Tablet PO (14:22)
--- NOTE | 2022-01-24 15:01 | ANE.PACU2 ---
Inpatient post-anesthesia follow up: Airway intact: Yes Vital signs: Temperature Pulse Rate Respiratory Rate Blood Pressure Pulse Oximetry Oxygen Delivery Me thod Nasal Cannula Oxygen Flow Rate Fraction of Inspir ed Oxygen Hydration adequate: Yes Nausea and vomiting: No Pain level: 1 Mental status: Baseline
[2022-01-24] MEDS: vancomycin 1,000 MG in sodium chloride 0.9% 250 ML 250 MG IV (19:43)
--- NOTE | 2022-01-24 20:30 | PC.NURSE ---
Turcios Catheter Removed turcios catheter per orders. 9mls of water removed from balloon and catheter tip intact. Patient tolerated well.
--- NOTE | 2022-01-25 04:55 | PM.DCS ---
Discharge Providers Date of Admission: 01/24/22 05:42 Date of Discharge: January 25, 2022 Attending Provider at Admission: Markos Marie MD Attending Provider at Discharge: Markos Marie MD Primary Care Provider: Chicho Agrawal DO Hospital Course Hospital Course Ms. Meier is a 66-year-old female with a high-grade left carotid artery stenosis and a 1 month history of recurrent TIAs which actually resulted in an ER visit. Subsequent CTA revealed a 71% left ICA stenosis though by visual inspection, this appeared to be a more critical stenosis. In date, post CTA carotid duplex revealed velocities over 500 ms in the left ICA at the bifurcation. Because of her recurrent symptoms of right-sided intermittent weakness along with left amaurosis, we recommended expeditious endarterectomy. She was electively admitted yesterday on January 24 and underwent left carotid endarterectomy with patch angioplasty. Post procedure she had convalesced in the ICU where she remained neurologically intact. She has had low NILSA drain output. She is tolerating a regular diet without difficulties. No phonation problems. NILSA drain and operative dressing was removed this morning. Incision line is clean, dry, and intact. New dressing was applied. She remains neurologically intact. She is in good spirits and eager for discharge. She will be discharged to home today in stable condition. She will be scheduled follow-up in my clinic in 1 week. Physical Exam Const: COMMON NORMALS: patient oriented x3 Neck/C-Spine: OTHER: Left neck incision is clean and dry. There is no swelling, drainage, or erythema. Resp: COMMON NORMALS: normal respiratory effort and clear to auscultation bilaterally AUSCULTATION: clear to auscultation bilaterally Cardio: COMMON NORMALS: regular rate, regular rhythm, S1 normal heart sound present and No rub (Cardio) RATE: regular rate RHYTHM: regular rhythm HEART SOUNDS: S1 normal heart sound present Extremity: COMMON NORMALS: no clubbing, cyanosis or edema Neuro: COMMON NORMALS: patient oriented x3, no focal motor deficits, no sensory deficits noted and gait normal OTHER: Tongue is midline with protrusion. Face is symmetrical. Voice quality is normal. No swallowing difficulties. Urinary Catheter Management: Mckenzie: Cath Placed During This Visit: yes Reason for Continuing Indwelling Catheter: Not indwelling catheter Urinary Catheter Date of Insertion: 01/24/22 Urinary Catheter Time of Insertion: 07:20 Discharge Data Studies Completed and Pending Completed Studies During Hospitalization Category Date Time Status XR chest 1V portable [id number] Routine Exams 01/24/22 05:42 Completed Pending at discharge Category Date Time Status Leukocyte Reduced RBC Routine Lab 01/21/22 12:54 Results Type and Screen - Cardiac Routine Lab 01/21/22 12:54 Results Pathology: Surgical [PTH] Routine Pth 01/24/22 09:38 Received Radiology Impressions Chest X-Ray 01/24/22 05:42 IMPRESSION: 1. There are no acute chest findings. 2. Background of emphysema and pulmonary fibrosis. Laboratory Results WBC 9.3 10^3/uL (4.0-10.0) 01/21/22 12:54 RBC 5.99 10^6/uL (4.1-5.3) H 01/21/22 12:54 Hgb 17.2 g/dL (11.5-15.3) H 01/21/22 12:54 Hct 53.2 % (37.0-47.0) H 01/21/22 12:54 MCV 88.8 fl (81-99) 01/21/22 12:54 MCH 28.7 pg (28.0-34.0) 01/21/22 12:54 MCHC 32.3 g/dL (30.0-36.0) 01/21/22 12:54 RDW 14.4 % (12.1-15.1) 01/21/22 12:54 Plt Count 265 10^3/cmm (130-400) 01/21/22 12:54 MPV 11.4 fL (7.4-10.4) H 01/21/22 12:54 Neut % (Auto) 67.5 % 01/21/22 12:54 Lymph % (Auto) 21.4 % 01/21/22 12:54 [place] % (Auto) 7.0 % 01/21/22 12:54 Eos % (Auto) 2.8 % 01/21/22 12:54 Baso % (Auto) 1.0 % 01/21/22 12:54 Neut # (Auto) 6.29 10^3/uL (1.8-7.7) 01/21/22 12:54 Lymph # (Auto) 2.0 10^3/uL (0.8-4.8) 01/21/22 12:54 [place] # (Auto) 0.7 10^3/uL (0.2-0.9) 01/21/22 12:54 Eos # (Auto) 0.3 10^3/uL (0.0-0.8) 01/21/22 12:54 Baso # (Auto) 0.1 10^3/uL (0.0-0.1) 01/21/22 12:54 Nucleated RBC % (auto) 0 % 01/21/22 12:54 Nucleated RBCs # 0.0 /100WBC 01/21/22 12:54 Sodium 140 mmol/L (136-145) 01/21/22 12:54 Potassium 4.3 mmol/L (3.5-5.1) 01/21/22 12:54 Chloride 97 mmol/L (98-107) L 01/21/22 12:54 Carbon Dioxide 28 mmol/L (22-29) 01/21/22 12:54 Anion Gap 19.3 (5-19) H 01/21/22 12:54 BUN 13 mg/dL (8-23) 01/21/22 12:54 Creatinine 0.8 mg/dL (0.5-0.9) 01/21/22 12:54 GFR Calculation 72.2 mL/min (90-130) L 01/21/22 12:54 Glucose 176 mg/dL (65-115) H 01/21/22 12:54 Calculated Osmolality 294 mOsm/kg (285-295) 01/21/22 12:54 Calcium 10.4 mg/dL (8.5-10.5) 01/21/22 12:54 Urine Color Yellow (Yellow) 01/21/22 12:54 Urine Appearance Clear (CLEAR) 01/21/22 12:54 Urine pH 6 (5-7) 01/21/22 12:54 Ur Specific Victor 1.015 (1.005-1.030) 01/21/22 12:54 Urine Protein Neg (Negative) 01/21/22 12:54 Urine Glucose (UA) Norm (Normal) 01/21/22 12:54 Urine Ketones Negative (Negative) 01/21/22 12:54 Urine Blood 3+ (Negative) H 01/21/22 12:54 Urine Nitrate Negative (Negative) 01/21/22 12:54 Urine Bilirubin Neg (Negative) 01/21/22 12:54 Prot Sulfosalicylic Acd Negative (Negative) 01/21/22 12:54 Urine Urobilinogen Norm mg/dL (Negative) 01/21/22 12:54 Ur Leukocyte Esterase Negative (Negative) 01/21/22 12:54 Urine RBC 0-4 /hpf (0-2) H 01/21/22 12:54 Urine WBC None /hpf (0-5) 01/21/22 12:54 Ur Squamous Epith Cells 0-4 /hpf (0-5) H 01/21/22 12:54 Amorphous Sediment Not Reportable 01/21/22 12:54 Urine Bacteria Trace /hpf (NONE) 01/21/22 12:54 Blood Type O Positive 01/21/22 12:54 Rho(D) Type Positive 01/21/22 12:54 Antibody Screen Negative 01/21/22 12:54 Crossmatch See Detail 01/21/22 12:54 Procedures Performed Left carotid endarterectomy with patch angioplasty on January 24, 2022 Vitals Last Vital Signs Temp 98.3 F 01/24/22 20:15 Pulse 51 L 01/24/22 20:15 Resp 18 01/24/22 20:15 BP 98/47 01/24/22 20:15 Pulse Ox 91 01/24/22 20:15 O2 Del Method 01/24/22 10:32 Discharge Plan Discharge Patient Disposition: Home Condition: Stable Prescriptions: New hydrocodone-acetaminophen 5-325 mg Tablet 1 tab PO Q6H PRN (Reason: Moderate To Severe Pain) Qty: 16 0RF sulfamethoxazole-trimethoprim [Bactrim DS] 800-160 mg tablet 1 tab PO BID Qty: 6 0RF Continued pantoprazole 40 mg tablet,delayed release (DR/EC) 40 mg PO DAILY Qty: 30 2RF atorvastatin 80 mg tablet 80 mg PO DAILY Qty: 30 5RF lisinopril 20 mg tablet 20 mg PO DAILY Qty: 30 5RF amlodipine 5 mg tablet 5 mg PO DAILY Qty: 30 5RF aspirin 81 mg capsule 81 mg PO DAILY Qty: 30 0RF Discharge Orders: Discharge Order (Routine); Ordered 01/25/22 Ordered By: Markos Marie Referrals: Markos Marie MD [Physician] - 1 week Discharge Diet: Cardiac Discharge Activity: Limit activity as instructed Patient Instructions: Opioid Safety Activity Restrictions/Additional Instructions: May remove bandage in 2 days May begin daily showers in 3 days No swimming or tub baths x 2 weeks No ointments on incision Report drainage, redness, heat, increased pain, or swelling to clinic No heavy lifting or pulling x2 weeks Discharge Attestations Time Spent in Discharge Care*: less than 30 min Specific Discharge Activities: educating patient, documenting/other paperwork and evaluating patient/reviewing data Time Spent in Smoking Cessation: 3 to 10 minutes Nicotine replacements were discussed Quality Metrics Clinical Quality Measures [ No reported AMI, CVA or VTE this stay] Coding Level of Care Code Acute Chg FW DC note
[2022-01-25 06:00] VITALS: PULSE 71
--- NOTE | 2022-01-25 06:44 | PC.NURSE ---
Shift Note Frequent safety and comfort rounds continue. Orders and/or nursing care completed as indicated. Patient monitored for response to intervention and treatment(s). Education provided includes treatment plan. Patient verbalized understanding of teaching. Patient had an uneventful night, remains alert & oriented on room air. NILSA drain removed this morning by Dr. Marie at bedside. Patient voided 3 times overnight since removal of catheter. No complaints of pain overnight. Left neck surgical incision covered with dressing-dry and intact. Will continue to monitor.
[2022-01-25 09:38] VITALS: PULSE 71
== END 2022-01-25 09:39 | disposition home or self-care (01) | DRG 39 ==
LOC: ICU 23:15
PROVIDERS: Admitting Provider Thoracic Surgery (Cardiothoracic Vascular Surgery); PCP Family Medicine; Visit Provider Thoracic Surgery (Cardiothoracic Vascular Surgery)
PROC: 03CL0ZZ Extirpation of Matter from Left Internal Carotid Artery, Open Approach (ICD-10-PCS; CPT 35301; principal; 2022-01-24 07:00)
DX: I65.22 Occlusion and stenosis of left carotid artery (principal); F17.211 Nicotine dependence, cigarettes, in remission; K21.9 Gastro-esophageal reflux disease without esophagitis; Z86.73 Personal history of transient ischemic attack (TIA), and cerebral infarction without residual deficits; Z79.82 Long term (current) use of aspirin; Z82.49 Family history of ischemic heart disease and other diseases of the circulatory system
CPT/HCPCS: 36415; 51702; 71045; 80048; 81001; 85025; 86850; 86900; 86920; 88304; 93880; 99203; 99204; J0330; J1100; J1170; J1200; J1644; J2370; J2405; J2704; J2710; J2720; J3010; J3370; J3490; J7030; J7050

== ENCOUNTER → 2022-02-01 13:42 | Outpatient (BNVA) | payer MEDICARE, OTHER, SELFPAY | PROVIDERS: PCP Family Medicine; Visit Provider Thoracic Surgery (Cardiothoracic Vascular Surgery) | DX: Z98.890 Other specified postprocedural states (principal) | CPT/HCPCS: 99024 ==

== ENCOUNTER → 2022-02-23 12:44 | Outpatient (BNVA) | payer MEDICARE, OTHER, SELFPAY | PROVIDERS: PCP Family Medicine; Visit Provider Thoracic Surgery (Cardiothoracic Vascular Surgery) | DX: Z98.890 Other specified postprocedural states (principal) | CPT/HCPCS: 99024 ==

== ENCOUNTER 2022-02-24 07:43 | Outpatient (CLI) | payer MEDICARE, OTHER, SELFPAY ==
--- NOTE | 2022-02-24 08:00 | USCV_ITS ---
Areli Meier Age: 67 Gender: F : 1955 Exam Date: 02/24/2022 07:57 Ordering Phys: Markos Marie MD (Andy) [email or web address] [place] Technologist: MARY Exam Location: [facility] [place] Indication: S/P LEFT CEA X4WKS AGO Risk Factors: Previous Vascular Surgery: Right Brachial BP: / Left Brachial BP: / Right Left Velocity (cm/s) Spectral Plaque Velocity (cm/s) Spectral Plaque Syst/Diast Broadening Syst/Diast Broadening 88.60/ 5.40 Prox CCA 86.30 / 25.70 48.00/ 17.70 Mid CCA 76.20 / 28.50 36.80/ 14.40 Distal CCA 69.80 / 23.00 313.30/65.50 Prox ICA 63.40 / 20.20 131.30/28.80 Mid ICA 92.80 / 33.60 72.10/ 32.70 Distal ICA 124.10/ 48.00 397.70 ECA 152.80 3.54 ICA/CCA 1.44 Antegrade Vertebral Antegrade 62.40/ 17.90 cm/s 68.90/ 18.40 cm/s Tri Subclavian Tri 131.5 154.0 0 0 CONCLUSIONS Right ICA stenosis 70-99%. Recommend CTA.moderate atheromatous plaque right carotid bulb/ICA. Left ICA stenosis <50%. Mild atheromatous plaque left carotid bulb/ICA. Normal antegrade Doppler flow noted in the right vertebral artery. Normal antegrade Doppler flow noted in the left vertebral artery. Errol Christy MD (Electronically Signed) Final Date: 24 February 2022 15:18 S
== END 2022-02-24 07:44 | disposition home or self-care (01) ==
LOC: RAD 07:45
PROVIDERS: PCP Family Medicine; Visit Provider Thoracic Surgery (Cardiothoracic Vascular Surgery)
DX: I65.23 Occlusion and stenosis of bilateral carotid arteries (principal)
CPT/HCPCS: 93880

== ENCOUNTER 2022-07-12 11:17 | Outpatient (CLI) | payer MEDICARE, OTHER, SELFPAY ==
--- NOTE | 2022-07-12 12:00 | USCV_ITS ---
Areli Meier Age: 67 Gender: F : 1955 Exam Date: 07/12/2022 11:50 Ordering Phys: Markos Marie MD (Andy) ([email or web address]) Technologist: Exam Location: [facility] [place] Indication: Risk Factors: Previous Vascular Surgery: L CEA Right Brachial BP: / Left Brachial BP: / Right Left Velocity (cm/s) Spectral Plaque Velocity (cm/s) Spectral Plaque Syst/Diast Broadening Syst/Diast Broadening 29.90/ 8.50 Prox CCA 81.60 / 23.20 41.70/ 9.60 Mid CCA 67.30 / 19.80 28.80/ 9.60 Distal CCA 82.70 / 22.10 551.10/188.00 Prox ICA 59.50 / 18.70 296.20/60.80 Mid ICA 81.60 / 20.90 99.90/ 21.00 Distal ICA 125.70/ 41.90 202.60 ECA 141.10 13.23 ICA/CCA 1.52 Antegrade Vertebral Antegrade 62.10/ 9.30 cm/s 86.00/ 19.80 cm/s Bi Subclavian Bi 79.40 156.6 0 FINDINGS Comparison:. 02/24/22 Severe obstructive lesions noted in the right internal carotid artery , progression since the prior exam. Marked right diastolic increased velocity. No left ICA stenosis. Antegrade vertebral arteries. CONCLUSIONS Right ICA stenosis 70-99%. Severe stenosis with progression since the prior exam. Left ICA stenosis < 50%. Dr. Monica Campos DO (Electronically Signed) Final Date: 13 July 2022 08:40 S
== END 2022-07-12 11:18 | disposition home or self-care (01) ==
LOC: RAD 11:21
PROVIDERS: PCP Family Medicine; Visit Provider Thoracic Surgery (Cardiothoracic Vascular Surgery)
DX: I65.23 Occlusion and stenosis of bilateral carotid arteries (principal)
CPT/HCPCS: 93880

== ENCOUNTER 2022-07-23 08:51 | Outpatient (CLI) | payer MEDICARE, OTHER, SELFPAY ==
[2022-07-23] MEDS: iohexol 350 mg/mL 500 mL Btl (per mL) IV (08:57)
--- NOTE | 2022-07-23 09:30 | CT_ITS ---
WS: [id number] CT ANGIOGRAM CAROTID ARTERIES HISTORY: carotid stenosis TECHNIQUE: CT angiogram is performed of the carotid arteries. During arterial injection imaging is ob tained from the skull base to the aortic arch in 1.25 mm imaging. Coronal and sagittal reformats are submitted, MIP imaging also reviewed. Additional multiplanar reformats of the carotid arteries are lucia bmitted. NASCET criteria utilized. All CT scans at [facility] use at least one of these dose optimization techniques: automated exposure control; mA and/or kV adjustment per patient size (includ es targeted exams where dose is matched to clinical indication); or iterative reconstruction. CONTRAST: Omnipaque 350; 100 mL IV. DLP: 236.60 mGy.cm COMPARISON: Carotid ultrasound 07/12/2022 Right carotid: Common carotid artery: Arises normally from the innominate artery. No significant plaque or stenosis. Internal carotid artery: Near circumferential calcified plaque with additional soft tissue plaque and intimal thickening causing a significant high-grade stenosis at the RIGHT proximal ICA. Stenosis gre ater than 90%. Distal carotid artery contains calcifications with no additional high-grade stenosis. External carotid artery: Patent. Left carotid: Common carotid artery: Arises normally from the aortic arch. No significant stenosis. Internal carotid artery: Mild intimal thickening. Status post prior endarterectomy. No recurrent sten osis. A few scattered calcified plaques through the skull base. There is increasing plaque in the cav ernous sinuses. Intracranial carotid artery approaching 50% stenosis. External carotid artery: Patent. Right vertebral artery: Unremarkable. Left vertebral artery: Dominant. No occlusion or stenosis. Subclavian arteries: No stenosis or abnormality identified. Upper thorax: Marked centrilobular emphysema. No mass. Thyroid gland: Normal. Osseous structures: Cervical spondylosis. Skull base: Negative. No destructive process. CT/CT angio neck 63871 IMPRESSION: 1. Severe proximal RIGHT ICA stenosis greater than 90%. Correlates with the ca rotid ultrasound findings of 07/12/2022. 2. Status post LEFT carotid endarterectomy. No recurrent stenosis in the cervi david carotid artery. 3. Atherosclerotic plaque within the cavernous carotid arteries. Slightly grea ter stenosis on the LEFT near 50%.
== END 2022-07-23 08:52 | disposition home or self-care (01) ==
LOC: RAD 08:55
PROVIDERS: PCP Family Medicine; Visit Provider Thoracic Surgery (Cardiothoracic Vascular Surgery)
DX: I65.23 Occlusion and stenosis of bilateral carotid arteries (principal)
CPT/HCPCS: 70498; Q9967

== ENCOUNTER → 2022-07-28 09:35 | Outpatient (BNVA) | payer MEDICARE, OTHER, SELFPAY | PROVIDERS: PCP Family Medicine; Visit Provider Thoracic Surgery (Cardiothoracic Vascular Surgery) | DX: I65.21 Occlusion and stenosis of right carotid artery (principal); Z87.891 Personal history of nicotine dependence; Z79.82 Long term (current) use of aspirin | CPT/HCPCS: 99213 ==

== ENCOUNTER 2022-08-02 11:00 | Inpatient (IN) | payer MEDICARE, OTHER, SELFPAY ==
[2022-08-01 08:21] VITALS: BMI 26.6
--- NOTE | 2022-08-01 08:24 | ECG_ITS ---
[facility] Test Date: 2022-08-01 Pat Name: Areli Meier Department: Room: Gender: Female Customer Support Consultant: : 1955 Requested By: Edwin Hassan Order Number: [id number] Gilberto MD: Ilya Bob M.D. Measurements Intervals [place] Rate: 73 P: 69 [place]: 177 QRS: 34 QRSD: 85 T: 53 QT: 385 QTc: 426 Interpretive Statements SINUS RHYTHM WITH OCCASIONAL VENTRICULAR PREMATURE COMPLEXES LOW QRS VOLTAGE IN PRECORDIAL LEADS [QRS DEFLECTION < 1.0 mV IN CHEST LEADS] Compared to ECG 11/10/2021 20:52:14 No significant changes Electronically Signed On 08-01-2022 14:33:51 CDT by Ilya Bob M.D. [id number]
[2022-08-01 09:02] LABS: Basophils # 0.1 10^3/uL (0.0-0.1); Basophils % 0.5 %; Eosinophils # 0.2 10^3/uL (0.0-0.8); Eosinophils % 2.1 %; Hematocrit 47.5 % (37.0-47.0); Hemoglobin 15.7 g/dL (11.5-15.3); Lymphocytes # 1.9 10^3/uL (0.8-4.8); Lymphocytes % 19.7 %; Mean Corpuscular HGB Conc 33.1 g/dL (30.0-36.0); Mean Corpuscular Hemoglobin 29.5 pg (28.0-34.0); Mean Corpuscular Volume 89.3 fl (81-99); Monocytes # 0.7 10^3/uL (0.2-0.9); Monocytes % 7.4 %; Neutrophils # 6.77 10^3/uL (1.8-7.7); Neutrophils % 69.9 %; Nucleated Red Blood Cells % 0 %; Platelet Count 241 10^3/cmm (130-400); Red Blood Count 5.32 10^6/uL (4.1-5.3); Red Cell Distribution Width 13.3 % (12.1-15.1); White Blood Count 9.7 10^3/uL (4.0-10.0)
[2022-08-01 09:15] LABS: Add Urine Culture? No; Add Urine Microscopic? YES; Bacteria Urine 1+ /hpf; Bilirubin Urine Neg (Negative); Blood Urine 2+ (Negative); Glucose Urine UA Norm (Normal); Hyaline Casts Urine 0-4 /lpf; Ketones Urine Negative (Negative); Leukocyte Esterase Urine Negative (Negative); Mucus Urine 1+ /hpf; Nitrate Urine Negative (Negative); Protein Urine Neg (Negative); Urine Appearance Clear (CLEAR); Urine Color Dark Yellow (Yellow); Urobilinogen Urine Norm (Negative); WBC Urine 0-4 /hpf (0-5); pH Urine 6 (5-7)
[2022-08-01 09:16] LABS: Anion Gap 12.9 (5-19); Blood Urea Nitrogen 13 mg/dL (8-23); Carbon Dioxide 28 mmol/L (22-29); Chloride 96 mmol/L (98-107); Glomerular Filtration Rate 62.8 mL/min (90-130); Glucose 167 mg/dL (65-115); Osmolality Calculated 280 mOsm/kg (285-295); Potassium 3.9 mmol/L (3.5-5.1); Sodium 133 mmol/L (136-145)
--- NOTE | 2022-08-01 15:48 | ANES.PREANE2 ---
Pre-Anesthetic Assessment Height/Weight: Height 1.75 m Weight 81.647 kg Preop Diagnosis: High-grade right carotid artery stenosis Operation Date: 08/02/22 07:00 Proposed Procedures p right carotid surgery 32656,I65.29(Right) - Markos Marie MD Familial anesthetic complications: none Was Beta María Elena taken within 24 hours: N/A Was Clonidine taken within 24 hours: N/A Social No alcohol and No tobacco Exam alert, oriented x 3, clear to auscultation bilaterally and regular rate & rhythm Airway Submandibular: within normal limits Cervical ROM: within normal limits Mallampati: Class II Dentition: chipped CV/HEM Hypertension and Peripheral Vascular Disease GI Gastroesophageal Reflux Disease Metabolic Hyperlipidemia [facility] [place] Lower Back Pain Anesthetic Plan ASA status: 3 Anesthesia: General Other: A.line Medications/Allergies Home Medications Medication Instructions Recorded Confirmed Last Taken Type aspirin 81 mg capsule 81 mg PO DAILY #30 caps 11/10/21 08/01/22 08/01/22 Rx pantoprazole 40 mg tablet,delayed 40 mg PO DAILY #90 tabs 02/28/22 08/01/22 07/31/22 Rx release amlodipine 10 mg-valsartan 160 mg 1 tab PO DAILY #90 tabs 07/14/22 08/01/22 08/01/22 Rx tablet atorvastatin 80 mg tablet 80 mg PO DAILY 08/01/22 08/01/22 07/31/22 History Allergies Allergy/AdvReac Type Severity Reaction Status Date / Time NSAIDS (Non-Steroidal Allergy Mild ADR-Chest Verified 07/28/22 10:11 Anti-Inflamma Pain Penicillins Allergy Mild rash Verified 07/28/22 10:11 hydrocodone Allergy ADR-Halluci Verified 08/01/22 08:17 nating tetracycline Allergy ALGY-Bliste Verified 07/28/22 10:11 r PFSH Anesthesia Medical History Migraine Family History Mother CAD (coronary artery disease) Diabetes Hypertension Father CAD (coronary artery disease) Hypertension Sister Cancer Breast Cancer Denies family history of Clotting disorder Dementia Hyperlipidemia Psychiatric illness Chronic kidney disease (CKD) Suicide Anesthesia complication Bleeding disorder Family history of premature coronary artery disease Lung disease Stroke Social History Smoking and tobacco status: former smoker Quit status (tobacco): has quit using tobacco Year quit tobacco: 2021 Second hand smoke exposure: No Smoking risk assessment/counseling performed?: No Alcohol intake: never Substance/Drug Use: never Desire information about substance/drug rehabilitation?: No Counseling given: No Adopted: No Caregiver/support person: No Lives independently: Yes Household members: none Marital status: / Number of children: 4 Pets and animals: Yes Pets & animals: cat(s) and dog(s) Female Reproductive History Spontaneous abortions: No Data Anesthesia 08/01/22 08:34 08/01/22 08:34 Short CBC 08/01/22 Range/Units 08:34 WBC 9.7 (4.0-10.0) 10^3/uL Hgb 15.7 H (11.5-15.3) g/dL Hct 47.5 H (37.0-47.0) % MCV 89.3 (81-99) fl Plt Count 241 (130-400) 10^3/cmm Neut % (Auto) 69.9 % Neut # (Auto) 6.77 (1.8-7.7) 10^3/uL BMP 08/01/22 08:34 Sodium 133 L Potassium 3.9 Chloride 96 L Carbon Dioxide 28 BUN 13 Creatinine 0.9 Glucose 167 H Calcium 9.0 Urine 08/01/22 Range/Units 08:42 Urine Color Dark yellow (Yellow) Urine Appearance Clear (CLEAR) Urine pH 6 (5-7) Ur Specific Capac 1.020 (1.005-1.030) Urine Protein Neg (Negative) Urine Glucose (UA) Norm (Normal) Urine Ketones Negative (Negative) Urine Nitrate Negative (Negative) Urine Bilirubin Neg (Negative) Ur Leukocyte Esterase Negative (Negative) Urine RBC 5-10 H (0-2) /hpf Urine WBC 0-4 H (0-5) /hpf Blood Bank 08/01/22 08:34 Blood Type O Positive Rho(D) Type Positive Antibody Screen Not Reportable Cardiac Studies: No Data to Display
[2022-08-02] VITALS (21 sets, daily range): BP systolic 82–124; BP diastolic 44–70; PULSE 57–91; RESP 12–22; TEMP 36.3–36.6; O2SAT 74–98; BMI 26.6
[2022-08-02 05:58] LABS: Glucose Point of Care 129 mg/dL (70-110)
[2022-08-02] MEDS: sodium chloride 0.9% 1,000 ML 30 ML IV (06:18)
[2022-08-02] MEDS: vancomycin 1,500 MG/300 ML PIGGYBACK 150 MG IV (06:19)
--- NOTE | 2022-08-02 06:23 | P.HPUD_ITS ---
Surgery/Procedure H&P Update DATE OF PROCEDURE: August 02, 2022 DATE H&P PERFORMED: 07/28/22 H&P UPDATE INFORMATION: I have reviewed H&P completed within last 30 days, I have examined patient prior to procedure and Changes to prior documentation as noted here CHANGES TO PREVIOUS DOCUMENTATION: Ms. Meier presents with her son and [id number] for planned right carotid endarterectomy related to a greater than 90% right ICA stenosis which has been previously noted from duplex study and confirmed by CTA of July 23. She is status post left carotid endarterectomy on January 24 for 71% left ICA stenosis with multiple TIA episodes resulting left arm weakness and left amaurosis. These have resolved since her surgery. Upon interview this morning, she actually states that she had a right episode of amaurosis since her visit with us on July 28 in our clinic. She states she was driving when she lost vision in her right eye for approximately a minute before it returned. She had no right sided motor weakness. I discussed very carefully with her and her family findings of the recent CTA and the recommendation to consider endarterectomy, particularly with these new findings of a right sided amaurosis episode. Rationale for the surgery was carefully discussed to reduce her statistical increased risk for spontaneous CVA related to this lesion. Details of the surgery and general conduct were reviewed. Specific risk discussed include the possibility of major stroke, , heart attack, major bleeding, infection, and particularly with this surgery: deviation of the tongue, temporary or permanent hoarseness, facial asymmetry, swallowing difficulties, major stroke, visual disturbances or blindness, and need for long- term follow-up. She states understanding and wishes to proceed. All questions were answered. PREOP DIAGNOSIS: High-grade right carotid artery stenosis with Right Amaurosis PLANNED PROCEDURE: Operation Date: 08/02/22 07:00 Proposed Procedures p right carotid surgery 64600,I65.29(Right) - Markos Marie MD
--- NOTE | 2022-08-02 08:11 | P.ANESUD_ITS ---
Pre-Anesthetic Update Pre-Anesthetic Assessment: Date of Surgery/Procedure: 08/02/22 Preop Rekha gnosis: High-grade right carotid artery stenosis with Right Amaurosis Proposed Procedure: Operation Date: 08/02/22 07:00 Proposed Procedures p right carotid surgery 27298,I65.29(Right) - Markos Marie MD Any changes to Pre-Anesthetic Assessment?: No Last Intake: Intake Last Liquid Date 08/01/22 Last Liquid Time 23:59 Last Solid Date 08/01/22 Last Solid Time 22:30 Labs Last 48hrs: Short CBC 08/01/22 Range/Units 08:34 WBC 9.7 (4.0-10.0) 10^3/ uL Hgb 15.7 H (11.5-15.3) g/dL Hct 47.5 H (37.0-47.0) % MCV 89.3 (81-99) fl Plt Count 241 (130-400) 10^3/c mm Neut % (Auto) 69.9 % Neut # (Auto) 6.77 (1.8-7.7) 10^3/u L BMP 08/01/22 08:34 Sodium 133 L Potassium 3.9 Chloride 96 L Carbon Dioxide 28 BUN 13 Creatinine 0.9 Glucose 167 H Calcium 9.0 Urine 08/01/22 Range/Units 08:42 Urine Color Dark yellow (Yellow) Urine Appearance Clear (CLEAR) Urine pH 6 (5-7) Ur Specific Gravit y 1.020 (1.005-1.030) Urine Protein Neg (Negative) Urine Glucose (UA) Norm (Normal) Urine Ketones Negative (Negative) Urine Nitrate Negative (Negative) Urine Bilirubin Neg (Negative) Ur Leukocyte Radha ase Negative (Negative) Urine RBC 5-10 H (0-2) /hpf Urine WBC 0-4 H (0-5) /hpf Blood Bank 08/01/22 08:34 Blood Type O Positive Rho(D) Type Positive Antibody Screen Not Reportable Vitals: Temperature 97.4 F L 08/02/22 06:01 Temperature Source Temporal Artery S can 08/02/22 06:01 Pulse Rate 77 08/02/22 06:01 Pulse Rhythm Regular 08/02/22 06:01 Pulse Strength 3+ Normal 08/02/22 06:01 Respiratory Rate 18 08/02/22 06:01 Blood Pressure 122/70 08/02/22 06:01 Blood Pressure Lulu n 87 08/02/22 06:01 Pulse Oximetry 98 08/02/22 06:01 Oxygen Delivery Me thod Room Air 08/02/22 06:01 Exam: Pre-Anes Outpt Exam: alert, oriented x 3, clear to auscultation bilaterally and regular rate & rhythm Cardiac Studies: No Data to Display
[2022-08-02] MEDS: heparin,porcine 1,000 unit/mL INJ 1 mL 2000 UNIT INJECTION (08:16)
[2022-08-02] MEDS: vancomycin 1,000 MG SDV 1000 MG IRRIGATION (08:19)
[2022-08-02] MEDS: lidocaine 1% INJ 10 mL (per mL) XX (08:19)
[2022-08-02 09:10] LABS: Add Urine Microscopic? YES; Bilirubin Urine Neg (Negative); Blood Urine 2+ (Negative); Glucose Urine UA Norm (Normal); Ketones Urine Negative (Negative); Leukocyte Esterase Urine Negative (Negative); Nitrate Urine Negative (Negative); Protein Urine Neg (Negative); Specific Gravity, Urine 1.015 (1.005-1.030); Urine Appearance Clear (CLEAR); Urine Color Yellow (Yellow); Urobilinogen Urine Norm (Negative); pH Urine 5 (5-7)
[2022-08-02 09:11] LABS: Add Urine Culture? No; Bacteria Urine TRACE /hpf; Mucus Urine TRACE /hpf; RBC Urine 0-4 /hpf (0-2); Squamous Epithelial Cell Urine RARE /hpf (0-5); WBC Urine RARE /hpf (0-5)
--- NOTE | 2022-08-02 09:20 | XR_ITS ---
WS: [id number] Exam: XR cervical spine 1Vport [id number] Date/Time of Exam: 08/02/2022 10:30 AM Reason For Exam: Foreign body Single AP view of the cervical spine upper chest submitted for evaluation. An endotracheal tube ends about 8 cm above the marcie. There is also a length of opaque tubing superi mposing the right neck ending in the region of the right upper chest. Significance of this is undeter mined. Surgical clips in the left neck. Additional electrodes superimpose the upper cervical spine. A ccentuated bronchovascular markings in the visualized lung zones.
--- NOTE | 2022-08-02 11:20 | P.OP_ITS ---
Operative Report Date of procedure: August 02, 2022 Pre-op diagnosis: Preop Diagnosis High-grade right carotid artery stenosis with Right Amaurosis Procedure done: Right carotid endarterectomy with patch angioplasty Implants: Hemosure patch Specimens removed/disposition: Carotid plaque to pathology Pathology: Carotid plaque Surgeon: Markos Marie Anesthesia: General Estimated blood loss (mL): 50 Complications: None: Neurologically intact immediately postop Condition: stable Disposition: ICU Brief History: Ms. Meier is a pleasant 57-year-old female with bilateral carotid disease and is status post left carotid endarterectomy January of last year due to a 71% stenosis with amaurosis and a TIA with intermittent weakness to the left upper extremity. Postoperatively she has done well. I will follow-up duplex study her right carotid lesion has substantially worsened and now and over 90%. Following a preop evaluation 5 days ago she actually stated she just suffered 1 episode of amaurosis to the right eye about 2 days ago. We have recommended elective endarterectomy to reduce her statistical increased risk for spontaneous CVA related to this high-grade lesion. Details and risk of surgery were again carefully discussed including particular risk related to surgery such as stroke, dysphonia, dysphagia, facial symmetry, deviation of the tongue, as well as major nonneurologic complications such as heart attack or . She wished to proceed. I did licensed mental health counselor with her son and [id number] preoperatively as well. Procedure: Ms. Meier was placed on the OR table and underwent general endotracheal anesthesia with a neurological monitoring endotracheal tube as well as placement of a left radial arterial line. Bihemispheric monitoring pads were placed as well as grounding and sensing pads for nerve conduction evaluation during neck dissection.The entire upper chest and right neck were sterilely prepped and draped. Appropriate timeout was completed and confirmed by all present. Incision was made along the anterior border of the sternomastoid muscle and carried down to the platysma with cautery. Dissection from this point forward was carried out utilizing Metzenbaum scissors and limited use of bipolar cautery. The internal jugular vein was dissected free and the facial vein was ligated, oversewn, and divided. Dissection was continued down through the ansa cervicalis with preservation of major branches. Minor branches were divided if required to allow for adequate exposure. Nerve conduction evaluation was performed throughout the dissection for protection of the recurrent nerve. We subsequently reached the common carotid artery. Dissection was then continued proximally to distally across the bifurcation. Vessel loops were placed around the common carotid artery, internal carotid artery, and external carotid artery. Distally, the base of the hypoglossal nerve could be identified and was protected. The internal carotid artery disease extended approximately 2 cm above the bifurcation. This did require some traction in upper region, but great care was taken to minimize pressure to the hypoglossal nerve, which was protected. Care was taken during this dissection to avoid injury to the vagus nerve. The patient was then heparinized with 10,000 units. The systolic blood pressure was elevated to 160. Following this, in a rapid sequenced fashion, the distal internal carotid artery was clamped followed by clamping of the common carotid artery and external carotid artery. #11 scalpel blade was used to open the common carotid artery proximally. Gee scissors were then utilized to extend this arteriotomy across the distal common carotid artery and ulcerated very stenotic plaque and continue this further at the bifurcation across the calcific plaque in the internal carotid artery until we had reached normal intima. The internal carotid artery clamp was briefly flashed with evidence of brisk back bleeding, therefore we elected not to shunt. It should be noted that bi-hemispheric oximetry was recorded throughout the procedure. Next, a freer elevator was utilized to create a dissection plane the plaque from intima at the proximal portion of the arteriotomy. This was then divided with a #11 scalpel blade. This plaque was then further dissected along the intimal plane proximally to distally across the bifurcation. Utilizing an everting technique, plaque was removed from the external carotid artery with brisk flow. This plaque was then dissected free up the internal carotid artery to a feathered edge. Heparinized saline solution was utilized to remove any loose debris. Next, a Hemashield patch was brought into the field and sewn into position utilizing a running 6-0 Prolene suture, thereby completing our patch angioplasty. At the completion of the patch, the external carotid artery was opened followed by the common carotid artery and finally the internal carotid artery, thereby reestablishing cerebral flow. Areas of extravasation were repaired with 6-0 Prolene suture. After 5 minutes, heparin was reversed with protamine. Hemostasis was confirmed. The wound was irrigated with antibiotic solution. A small, flat, Flakito-Larsen drain was placed in the wound and connected to bulb suction. Sponge and needle count was correct. The wound was then closed in 2 layers of 3-0 Vicryl suture. Skin was reapproximated in a subcuticular manner with 4-0 Monocryl suture. A pressure dressing was then applied. Meier was awakened from anesthesia and spontaneous movement of all extremities as well as movement to command was noted. The patient was then transferred to the ICU in stable condition. I did licensed mental health counselor with her family at completion of the procedure. She will be monitored in the ICU for the next 24 hours.
--- NOTE | 2022-08-02 11:54 | PC.NURSE ---
To unit Pt brought to unit by OR staff. Pt is sleeping with oxy mask in place satting in the 90's. MAP upon arrival in the high 50's and has began to go up into the 60's as pt has began to wake up more. Pt has left radial art line that is wokring well. Surgical incision to right neck has NLISA drain, the dressing is CDI. Pt's family is at bedside.
--- NOTE | 2022-08-02 12:04 | PC.PHAR ---
PHARMACY TO DOSE - VANCOMYCIN With patient's current renal function and current vitals, it was calculated that the patient should receive 1500 mg every 18 hours of vancomycin starting 08/03/22 @ 0000. This should give a predicted peak of 37.5 mcg/ml and a trough of 12.85. We will continue to monitor this patient's renal function and subsequent trough levels making any necessary changes. Please let us know if there is anything else we can help with. Thanks, Refugio Crystal, Pharm.D
[2022-08-02] MEDS: aspirin 81 mg EC Tablet PO (12:55)
[2022-08-02] MEDS: HYDROcodone-acetaminophen 5-325 mg Tablet 1 TAB PO (12:56)
--- NOTE | 2022-08-02 14:31 | ANE.PACU2 ---
Inpatient post-anesthesia follow up: Airway intact: Yes Vital signs: Temperature 97.5 F Pulse Rate 77 Respiratory Rate 18 Blood Pressure 122/70 Pulse Oximetry 98 Oxygen Delivery Me thod Room Air Oxygen Flow Rate Fraction of Inspir ed Oxygen Hydration adequate: Yes Nausea and vomiting: No Pain level: 3 Mental status: Baseline
[2022-08-02] MEDS: clopidogrel 75 mg Tablet PO (16:12)
[2022-08-02] MEDS: vancomycin 1,500 MG/300 ML PIGGYBACK 200 MG IV (23:14)
[2022-08-03] VITALS (16 sets, daily range): BP systolic 89–129; BP diastolic 42–70; PULSE 50–79; RESP 11–21; TEMP 36.6–36.7; O2SAT 88–94; BMI 30.1
--- NOTE | 2022-08-03 06:09 | PC.NURSE ---
0601- Dr. Mayorga at bedside and pulled NILSA drain.
--- NOTE | 2022-08-03 06:13 | P.DS_ITS ---
Discharge Providers Date of Admission: 08/02/22 11:00 Date of Discharge: August 03, 2022 Attending Provider at Admission: Markos Marie MD Attending Provider at Discharge: Markos Marie MD Primary Care Provider: Chicho Agrawal DO Diagnoses at Discharge Discharge Diagnosis (1) Status post carotid endarterectomy: Details from hospital stay: Ms. Meier is a 67-year-old female who originally presented last fall with bilateral carotid stenoses and left amaurosis fugax and intermittent TIAs involving left upper extremity with weakness. She underwent left carotid endarterectomy for 71% lesion with neurologic symptoms. Postoperatively, her amaurosis and neurologic symptoms resolved. She had a moderately high-grade right ICA stenosis that upon further follow-up is now reached a level of greater than 90%. Carotid endarterectomy was recommended on this side. Approximate 3 days prior to her surgery she did have an episode of right amaurosis which resolved in approximately 3 minutes. She was electively admitted yesterday on August 02 and underwent right carotid endarterectomy with patch angioplasty. Postoperatively, she has remained neurologically intact. No phonation or swallowing difficulties. No visual disturbances. She has been convalescing in the ICU for close monitoring. She has had low NILSA drain output. Aspirin has been reinitiated and Plavix was added as well. She currently is on high-dose Lipitor. She has done well. She is in good spirits. Postop pains been under good control. Tolerating diet well. NILSA drain was discontinued this morning. Incision is clean, dry, and intact. No local swelling. Face is symmetrical. Tongue is midline with protrusion. She will be discharged home today in stable condition with scheduled follow-up in my clinic in 1 week. Status: Acute Reason for Visit Reason for Visit: I65.29 Physical Exam Const: COMMON NORMALS: patient oriented x3 HENMT: OTHER: Tongue is midline with protrusion. Face is symmetrical. Neck/C-Spine: OTHER: Right neck incision is clean, dry, and intact. No local swelling. Resp: COMMON NORMALS: normal respiratory effort and clear to auscultation bilaterally AUSCULTATION: clear to auscultation bilaterally Cardio: COMMON NORMALS: regular rate, regular rhythm, S1 normal heart sound present and No murmurs present (Cardio) RATE: regular rate RHYTHM: regular rhythm HEART SOUNDS: S1 normal heart sound present Extremity: COMMON NORMALS: full ROM and no clubbing, cyanosis or edema Neuro: COMMON NORMALS: patient oriented x3, no focal motor deficits, no sensory deficits noted and gait normal OTHER: Tongue is midline with protrusion. Voice quality is normal. No swallowing difficulties. Urinary Catheter Management: Mckenzie: Cath Placed During This Visit: yes, but has since been removed by the nurse Reason for Continuing Indwelling Catheter: Accurate Measurement of Urinary Output in Critically Ill Patients Urinary Catheter Date of Insertion: 08/02/22 Urinary Catheter Time of Insertion: 07:30 Date Urinary Catheter Removed: 08/03/22 Time Urinary Catheter Discontinued: 06:00 Discharge Data Studies Completed and Pending Completed Studies During Hospitalization Category Date Time Status XR cervical spine 1 view portable [XR cervical spine Exams 08/02/22 09:20 Completed 1Vport 90866] Routine Pending at discharge Category Date Time Status XR cervical spine 1 view portable [XR cervical spine Exams 08/02/22 10:21 Taken 1Vport 47504] Routine Antibody Screen (PEG) Routine Lab 08/01/22 08:34 Results Leukocyte Reduced RBC Routine Lab 08/01/22 08:34 Results Type and Screen Routine Lab 08/01/22 08:34 Results Pathology: Surgical [PTH] Routine Pth 08/02/22 09:55 Received Laboratory Results WBC 9.7 10^3/uL (4.0-10.0) 08/01/22 08:34 RBC 5.32 10^6/uL (4.1-5.3) H 08/01/22 08:34 Hgb 15.7 g/dL (11.5-15.3) H 08/01/22 08:34 Hct 47.5 % (37.0-47.0) H 08/01/22 08:34 MCV 89.3 fl (81-99) 08/01/22 08:34 MCH 29.5 pg (28.0-34.0) 08/01/22 08:34 MCHC 33.1 g/dL (30.0-36.0) 08/01/22 08:34 RDW 13.3 % (12.1-15.1) 08/01/22 08:34 Plt Count 241 10^3/cmm (130-400) 08/01/22 08:34 MPV 11.0 fL (7.4-10.4) H 08/01/22 08:34 Neut % (Auto) 69.9 % 08/01/22 08:34 Lymph % (Auto) 19.7 % 08/01/22 08:34 [place] % (Auto) 7.4 % 08/01/22 08:34 Eos % (Auto) 2.1 % 08/01/22 08:34 Baso % (Auto) 0.5 % 08/01/22 08:34 Neut # (Auto) 6.77 10^3/uL (1.8-7.7) 08/01/22 08:34 Lymph # (Auto) 1.9 10^3/uL (0.8-4.8) 08/01/22 08:34 [place] # (Auto) 0.7 10^3/uL (0.2-0.9) 08/01/22 08:34 Eos # (Auto) 0.2 10^3/uL (0.0-0.8) 08/01/22 08:34 Baso # (Auto) 0.1 10^3/uL (0.0-0.1) 08/01/22 08:34 Nucleated RBC % (auto) 0 % 08/01/22 08:34 Nucleated RBCs # 0.0 /100WBC 08/01/22 08:34 Sodium 133 mmol/L (136-145) L 08/01/22 08:34 Potassium 3.9 mmol/L (3.5-5.1) 08/01/22 08:34 Chloride 96 mmol/L (98-107) L 08/01/22 08:34 Carbon Dioxide 28 mmol/L (22-29) 08/01/22 08:34 Anion Gap 12.9 (5-19) 08/01/22 08:34 BUN 13 mg/dL (8-23) 08/01/22 08:34 Creatinine 0.9 mg/dL (0.5-0.9) 08/01/22 08:34 GFR Calculation 62.8 mL/min (90-130) L 08/01/22 08:34 Glucose 167 mg/dL (65-115) H 08/01/22 08:34 POC Glucose 129 mg/dL (70-110) H 08/02/22 05:55 Calculated Osmolality 280 mOsm/kg (285-295) L 08/01/22 08:34 Calcium 9.0 mg/dL (8.5-10.5) 08/01/22 08:34 Urine Color Yellow (Yellow) 08/02/22 07:35 Urine Appearance Clear (CLEAR) 08/02/22 07:35 Urine pH 5 (5-7) 08/02/22 07:35 Ur Specific [place] 1.015 (1.005-1.030) 08/02/22 07:35 Urine Protein Neg (Negative) 08/02/22 07:35 Urine Glucose (UA) Norm (Normal) 08/02/22 07:35 Urine Ketones Negative (Negative) 08/02/22 07:35 Urine Blood 2+ (Negative) H 08/02/22 07:35 Urine Nitrate Negative (Negative) 08/02/22 07:35 Urine Bilirubin Neg (Negative) 08/02/22 07:35 Urine Urobilinogen Norm mg/dL (Negative) 08/02/22 07:35 Ur Leukocyte Esterase Negative (Negative) 08/02/22 07:35 Urine RBC 0-4 /hpf (0-2) H 08/02/22 07:35 Urine WBC Rare /hpf (0-5) 08/02/22 07:35 Ur Squamous Epith Cells Rare /hpf (0-5) 08/02/22 07:35 Amorphous Sediment Not Reportable 08/02/22 07:35 Urine Bacteria Trace /hpf (NONE) 08/02/22 07:35 Hyaline Casts 0-4 /lpf H 08/01/22 08:42 Urine Mucus Trace /hpf 08/02/22 07:35 Blood Type O Positive 08/01/22 08:34 Rho(D) Type Positive 08/01/22 08:34 Antibody Screen Not Reportable 08/01/22 08:34 PEG Antibody Screen Negative 08/01/22 08:34 Crossmatch See Detail 08/01/22 08:34 Procedures Performed Right carotid endarterectomy with patch angioplasty on August 02, 2022 Vitals Last Vital Signs Temp 98.1 F 08/03/22 04:30 Pulse 73 08/03/22 06:00 Resp 19 H 08/03/22 06:00 BP 115/70 08/03/22 06:00 Pulse Ox 91 08/03/22 06:00 O2 Del Method Room Air 08/02/22 20:00 Discharge Plan Discharge Patient Disposition: Home Condition: Stable Prescriptions: New tramadol 50 mg tablet 50 mg PO TID PRN (Reason: pain) Qty: 12 0RF clopidogrel 75 mg Tablet 75 mg PO DAILY Qty: 30 5RF sulfamethoxazole-trimethoprim [Bactrim DS] 800-160 mg tablet 1 tab PO BID Qty: 6 0RF Continued pantoprazole 40 mg tablet,delayed release (DR/EC) 40 mg PO DAILY Qty: 90 2RF amlodipine-valsartan 10-160 mg tablet 1 tab PO DAILY Qty: 90 1RF aspirin 81 mg capsule 81 mg PO DAILY Qty: 30 0RF atorvastatin 80 mg tablet 80 mg PO DAILY Rx Instructions: Take 1 tablet by mouth once daily Discharge Orders: Discharge Order (Routine); Ordered 08/03/22 Ordered By: Markos Marie Referrals: Markos Marie MD [Physician] - 1 week Discharge Diet: Usual diet Discharge Activity: Limit activity as instructed Patient Instructions: Opioid Safety Activity Restrictions/Additional Instructions: May remove bandage in 2 days May begin daily showers in 3 days Dry incision carefully after showers. May re-cover if desired to prevent ir ritation from clothing. No swimming or tub baths x 2 weeks No ointments on incision Report drainage, redness, heat, increased pain, fever or swelling No heavy lifting, pulling, or pushing x2 weeks Report any new neurologic or vision changes. Discharge Attestations Time Spent in Discharge Care*: less than 30 min Specific Discharge Activities: educating patient, discussing with family caseworker/social workers/dc planners, documenting/other paperwork and evaluating patient/reviewing data Status at Discharge: Cognitive status at discharge: cognitively intact , Behavioral status at discharge: cooperative , Functional status at discharge: independent ambulation , Overall status at discharge: patient is back to baseline Quality Metrics Clinical Quality Measures [ No reported AMI, CVA or VTE this stay] Coding Level of Care Code Acute Code for Chg Fwd Diagnoses Status post carotid endarterectomy Z98.890
== END 2022-08-03 10:08 | disposition home or self-care (01) | DRG 39 ==
LOC: ICU 11:28
PROVIDERS: Admitting Provider Thoracic Surgery (Cardiothoracic Vascular Surgery); PCP Family Medicine; Visit Provider Thoracic Surgery (Cardiothoracic Vascular Surgery)
PROC: 03CK0ZZ Extirpation of Matter from Right Internal Carotid Artery, Open Approach (ICD-10-PCS; CPT 35301; principal; 2022-08-02 07:00)
DX: I65.21 Occlusion and stenosis of right carotid artery (principal); Z86.73 Personal history of transient ischemic attack (TIA), and cerebral infarction without residual deficits; Z79.82 Long term (current) use of aspirin
CPT/HCPCS: 36415; 36416; 51702; 72020; 80048; 81001; 82962; 85025; 86850; 86900; 86920; 88304; 93005; 96376; J1100; J1170; J1644; J2370; J2704; J2720; J3010; J3370; J3490; J7030; P9016; P9045

== ENCOUNTER → 2022-08-18 11:23 | Outpatient (BNVA) | payer MEDICARE, OTHER, SELFPAY | PROVIDERS: PCP Family Medicine; Visit Provider Thoracic Surgery (Cardiothoracic Vascular Surgery) | DX: I65.23 Occlusion and stenosis of bilateral carotid arteries (principal); Z87.891 Personal history of nicotine dependence | CPT/HCPCS: 99024 ==

== ENCOUNTER 2022-09-29 11:36 | Outpatient (CLI) | payer MEDICARE, OTHER, SELFPAY ==
--- NOTE | 2022-09-29 12:15 | USCV_ITS ---
Areli Meier Age: 67 Gender: F : 1955 Exam Date: 09/29/2022 12:10 Ordering Phys: Markos Marie MD (Andy) ([email or web address] [place]) Technologist: YAYO Exam Location: [facility] [place] Indication: Stenosis. Bilateral CEA Risk Factors: Previous Vascular Surgery: Right Brachial BP: / Left Brachial BP: / Right Left Velocity (cm/s) Spectral Plaque Velocity (cm/s) Spectral Plaque Syst/Diast Broadening Syst/Diast Broadening 65.30/ 18.60 Prox CCA 75.00 / 20.90 79.20/ 23.30 Mid CCA 60.60 / 17.60 68.40/ 17.90 Distal CCA 75.00 / 20.90 128.80/35.50 Prox ICA 55.90 / 14.80 128.80/25.00 Mid ICA 94.00 / 34.20 139.30/30.20 Distal ICA 68.10 / 22.90 163.00 ECA 144.60 1.76 ICA/CCA 1.25 Antegrade Vertebral Antegrade 30.90/ 7.20 cm/s 68.40/ 22.10 cm/s Tri Subclavian Tri 104.7 90.40 0 FINDINGS comp 07/12/22 CONCLUSIONS Right ICA stenosis 50-69%. at the lower end of the range based on strict velocity criteria. Interval Right CEA Left ICA stenosis <50%. Mild atheromatous plaque left carotid bulb/ICA. Normal antegrade Doppler flow noted in the right vertebral artery. Normal antegrade Doppler flow noted in the left vertebral artery. Errol Christy MD (Electronically Signed) Final Date: 29 September 2022 14:34 S
== END 2022-09-29 11:37 | disposition home or self-care (01) ==
LOC: RAD 11:36
PROVIDERS: PCP Nurse Practitioner Family; Visit Provider Thoracic Surgery (Cardiothoracic Vascular Surgery)
DX: I65.23 Occlusion and stenosis of bilateral carotid arteries (principal); Z09 Encounter for follow-up examination after completed treatment for conditions other than malignant neoplasm
CPT/HCPCS: 93880

== ENCOUNTER → 2022-10-13 09:25 | Outpatient (BNVA) | payer MEDICARE, OTHER, SELFPAY | PROVIDERS: PCP Nurse Practitioner Family; Visit Provider Thoracic Surgery (Cardiothoracic Vascular Surgery) | DX: Z98.890 Other specified postprocedural states (principal) | CPT/HCPCS: 99213 ==

== ENCOUNTER 2023-09-29 14:42 | Outpatient (CLI) | payer MEDICARE, OTHER, SELFPAY ==
--- NOTE | 2023-09-29 15:00 | USCV_ITS ---
Areli Meier Age: 68 Gender: F : 1955 Exam Date: 09/29/2023 14:53 Ordering Phys: Markos Marie MD (Andy) ([email or web address] [place] Technologist: [employer] Exam Location: [facility] [place], [place] Indication: cea Risk Factors: Previous Vascular Surgery: Right Brachial BP: / Left Brachial BP: / Right Left Velocity (cm/s) Spectral Plaque Velocity (cm/s) Spectral Plaque Syst/Diast Broadening Syst/Diast Broadening 62.10/ 16.70 Prox CCA 70.30 / 22.00 75.00/ 25.80 Mid CCA 73.10 / 22.70 60.80/ 19.30 Distal CCA 52.00 / 18.50 56.40/ 13.80 Prox ICA 80.40 / 18.50 136.20/32.50 Mid ICA 57.20 / 18.50 88.40/ 21.70 Distal ICA 106.10/ 36.60 248.00 ECA 137.10 2.20 ICA/CCA 2.00 Antegrade Vertebral Antegrade 39.90/ 9.00 cm/s 52.00/ 10.80 cm/s Bi Subclavian Tri 128.3 89.40 0 FINDINGS HISTORY OF BILATERAL ENDARTERECTOMY CONCLUSIONS Right ICA stenosis <50%. Mild atheromatous plaque right carotid bulb/ICA. Left ICA stenosis <50%. Mild atheromatous plaque left carotid bulb/ICA. Intimal thickening in the common carotid arteries and internal carotid arteries bilaterally. Normal antegrade Doppler flow noted in the right vertebral artery. Normal antegrade Doppler flow noted in the left vertebral artery. Errol Christy MD (Electronically Signed) Final Date: 29 September 2023 16:35 S
== END 2023-09-29 14:43 | disposition home or self-care (01) ==
LOC: RAD 14:42
PROVIDERS: PCP Nurse Practitioner Family; Visit Provider Thoracic Surgery (Cardiothoracic Vascular Surgery)
DX: I65.23 Occlusion and stenosis of bilateral carotid arteries (principal)
CPT/HCPCS: 93880

== ENCOUNTER → 2023-10-02 09:48 | Outpatient (BNVA) | payer MEDICARE, OTHER, SELFPAY | PROVIDERS: PCP Nurse Practitioner Family; Visit Provider Thoracic Surgery (Cardiothoracic Vascular Surgery) | DX: Z98.890 Other specified postprocedural states (principal) | CPT/HCPCS: 99213 ==